=== PATIENT | male | born 1945 | race Caucasian/White ===

== ENCOUNTER 2017-01-14 11:08 | Inpatient (IN) ==
[2017-01-14] MEDS ORDERED: SODIUM CHLORIDE 0.9% 1,000 ML IV STA (11:33)
--- NOTE | 2017-01-14 11:35 | EKG Report ---
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
[2017-01-14 11:57] LABS: Basophils # 0.1 10*3/uL (0.0-0.2); Basophils % 0.8 % (0.0-0.8); Eosinophils # 0.2 10*3/uL (0.0-0.87); Eosinophils % 1.9 % (0.00-10.9); Hematocrit 38.6 VOL% (42.0-52.0); Hemoglobin 13.1 GM/DL (14.0-18.0); Immature Granulocytes % 0.2 %; Immature Granulocytes Absolute 0.02 #; Lymphocytes # 2.1 10*3/uL (1.4-4.0); Lymphocytes % 22.6 % (21.2-54.2); Mean Corpuscular HGB Conc 33.9 GM/DL (32-36); Mean Corpuscular Hemoglobin 30 PG (27-34); Mean Corpuscular Volume 88.5 FL (87-102); Monocytes # 0.6 10*3/uL (0.11-0.8); Monocytes % 6.1 % (1.7-12.7); Neutrophils # 6.2 10*3/uL (1.4-7.4); Neutrophils % 68.4 % (38.7-73.9); Platelet Count 208 T/CUMM (130-400); Red Blood Count 4.36 MC/CUMM (3.8-5.5); Red Cell Distribution Width 12.7 % (9.3-17.3); White Blood Count 9.1 T/CUMM (4-12)
[2017-01-14 12:07] LABS: PT Patient Result 10.9 SECS
--- NOTE | 2017-01-14 12:28 | XRay Report ---
Exam: XR chest 1V portable Indication: Syncope, diaphoresis Comparison study: Prior chest radiograph 03/13/2011 Findings: Cardiac silhouette is enlarged, similar to prior. Mediastinal contours appear within normal limits. Lungs are clear. There is no focal consolidation, pneumothorax or pleural effusion. Postsurgical changes lower cervical spine are partially imaged. Spinal stimulation wiring is also noted. Impression: No acute cardiopulmonary process. Similar mild cardiomegaly. Otherwise, no significant change. PROCEDURE INTERPRETED AT [facility] DEPARTMENT OF RADIOLOGY Final Report Signed by: Luis Munoz
[2017-01-14 12:30] LABS: Albumin 3.7 G/DL (3.4-5.0); Bilirubin,Total 0.7 MG/DL (0.2-1.0); Calcium 8.8 MG/DL (8.5-10.1); Potassium 3.9 MMOL/L (3.5-5.1); Total Protein 7.4 G/DL (6.4-8.3)
--- NOTE | 2017-01-14 13:20 | Emergency Department Note ---
Mejia Razo Hilary, am scribing for, and in the presence of, Basilio Burrell Jr., MD 11:30. IAshanti Marvin Jr., MD, personally performed the services described in this documentation, ascribed by Emily Ba in my presence, and it is both accurate and complete 319 . Arrival - Arrival Chief Complaint: Syncope Stated Complaint: fells faint,sweating,dizzy ED Nursing Triage Note: c/o having near syncope during anabaptism, states he broke out in a sweat , states last evening he did not have any energy and just weak all over., denies having chest pain , Mode of Arrival: Wheelchair Limitations: No Limitations Source: Patient, RN Notes Reviewed - History of Present Illness HPI Narrative: Pt is a 71 y/o white male presenting to the ED with c/o dizziness and sweating which onset this morning while at anabaptism. Pts reports that this is the second time it has happened this month. He confirms dizziness, sweating, no energy and chronic SOB but denies passing out or chest pain. No other complaints or problems stated in the ED. Onset (ago): hour(s) Consistency: now resolved Severity: mild Allergies/Adverse Reactions: Allergies Allergy/AdvReac Type Severity Reaction Status Date / Time No Known Allergies Allergy Verified 01/14/17 11:14 Home Medications: Home Medications Medication Instructions Recorded Confirmed Type Aspirin [Ecotrin] 81 mg PO QAM 02/10/16 01/14/17 History Losartan Potassium 100 mg PO QAM 02/10/16 01/14/17 History Lovastatin 10 mg PO BEDTIME 02/10/16 01/14/17 History Multivitamin [Multivitamins] 1 each PO QPM 02/10/16 01/14/17 History Verapamil Sr Tab [Calan Sr Tab] 240 mg PO BEDTIME 02/10/16 01/14/17 History ACETAMIN/diphenhydrAMIN 500-25 1 tablet PO BEDTIME PRN 01/14/17 01/14/17 History [Tylenol PM] HYDROcodone/ACETAMIN 7.5-325 1 tablet PO Q6H PRN 01/14/17 01/14/17 History [[place] 7.5-325] Gomer-3/Dha/Epa/Fish Oil [Fish Oil 1 each PO BID 01/14/17 01/14/17 History 1,000 mg Softgel] Pregabalin [Lyrica] 25 mg PO BID 01/14/17 01/14/17 History Review of System - Review of System 12 point system: reviewed and no additional remarkable complaints except as stated - Review of System Constitutional: Present: diaphoresis, other (dizziness) Respiratory: Present: respiratory distress (SOB) Cardiovascular: Present: syncope. Absent: chest pain Medical,Surgical,& Family Hx - Medical History Cardio: History of: Cardiac Dysrhythmia (A FIB DR ROMAN), Hypertension Neurology: History of: Peripheral Neuropathy (Currently Experiencing Numbness Rt Arm/Hand-Seeing MD Ceja) No history of: Seizures HEENT: History of: Eye Problem (CATARACTS) Rheumatology: History of;: Rheumatoid Arthritis Respiratory: History of: COPD Genitourinary: History of: Prostate Problems (BPH) Musculoskeletal: History of: Back/Neck Problems - Surgical History HEENT Surgeries: Surgical HX of: Eye Surgery (COS-02/16/16; 03/15/[address] Eid) Abdominal Surgeries: Surgical HX of: Colonoscopy, EGD Orthopedic Surgeries: Surgical HX of;: Orthopedic Surgery (3 BACK SURGERYS STIMULATOR NECK SURGERY), Total Knee Replacement (LEFT) - Family History Family History: Reports;: Family Cancer (PARENTS) - Social History Smoking Status: Smoker, status unknown Frequency of Alcohol Use: None Type of Drug Use: None Exam Physical Examination: General: Well-developed well-nourished, no apparent distress. Blood pressure during my exam 102/61, heart rate was 50 Head: Normocephalic, atraumatic. Eyes: PERRLA, EOMI. Nose: No obvious acute deformities or discharge. Mouth: No obvious acute injury. Neck: Full range of motion without obvious pain. No midline tender to palpation. Lymphatic: no significant lymphadenopathy noted. Lungs: Clear to auscultation bilaterally, normal and equal air movement bilaterally, no obvious rales or wheezing. Heart: Bradycardia, no obvious mummers. Abdomen: Soft nontender, nondistended, normal active bowel sounds. Skin: No obivous acute lesions noted, warm and dry Musculoskeletal: No gross deformities. Neurological: No focal findings, cranial nerves II through XII grossly normal. Psychiatric: Appropriate mood.. : Deferred Vital Signs: Vital Signs Temperature 97.5 F L 01/14/17 11:26 Pulse Rate 52 L 01/14/17 11:30 Respiratory Rate 12 01/14/17 11:30 Blood Pressure 112/60 01/14/17 11:30 O2 Sat by Pulse Oximetry 98 01/14/17 11:30 Course Course Narrative: Differential diagnosis, adverse drug reaction, traumatic bradycardia, ACS - Reevaluation(s) Reevaluation #1: I discussed this patient with the hospitalist and they accept care at this time. Will admit the patient because of symptomatic bradycardia, atrial fibrillation, renal insufficiency, near-syncope Time: 13:05 Results - Labs CBC & BMP: 01/14/17 11:46 01/14/17 11:46 Lab Results: I have reviewed the patients labs Labs: Laboratory Tests 01/14/17 11:46 WBC 9.1 RBC 4.36 Hgb 13.1 L Hct 38.6 L MCV 88.5 MCH 30 MCHC 33.9 RDW 12.7 Plt Count 208 MPV 11.0 Neut % (Auto) 68.4 Lymph % (Auto) 22.6 [place] % (Auto) 6.1 Eos % (Auto) 1.9 Baso % (Auto) 0.8 Neut # (Auto) 6.2 Lymph # (Auto) 2.1 [place] # (Auto) 0.6 Eos # (Auto) 0.2 Baso # (Auto) 0.1 Immature Gran % 0.2 Nucleated RBC % 0.0 Immature Gran # 0.02 Nucleated RBCs # 0.00 Laboratory Tests 01/14/17 01/14/17 11:46 11:46 Sodium 143 Potassium 3.9 Chloride 106 Carbon Dioxide 29 Anion Gap 11.9 BUN 26 H Creatinine 1.60 H GFR Calculation 51 BUN/Creatinine Ratio 16.00 Glucose 140 H Calculated Osmolality 291.0 Calcium 8.8 Total Bilirubin 0.70 AST 23 ALT 27 Alkaline Phosphatase 81 Troponin I < 0.015 Total Protein 7.4 Albumin 3.7 Globulin 3.7 H Albumin/Globulin Ratio 1.0 L - Diagnostic Findings Procedure: Chest x-ray: report reviewed by me (No acute cardiopulmonary process. Similar mild cardiomegaly. Otherwise, no significant change) Disposition Clinical Impression: Near syncope, Symptomatic bradycardia, Hypotension, Renal insufficiency Case discussed with: patient, patient's family Disposition: Still a Patient Condition: Stable Time of Disposition: 13:06
[2017-01-14 14:25] LABS: Apearance,Urine CLEAR (Clear); Bilirubin,Urine Negative (Negative); Blood, Urine Negative (Negative); Glucose,Urine (UA) Negative (Negative); Hyaline Casts,Urine 2 /LPF (0-3); Ketones,Urine Negative (Negative); Mucus,Urine Occasional /LPF (Occasional); Nitrite,Urine Negative (Negative); Protein,Urine Negative; RBC,Urine 4 /HPF (0-4); Squamous Epithelial Cell,Urine Occasional /HPF (0-10); Urine Color Yellow (Yellow); Urine Specific Gravity 1.012 (1.001-1.035); Urine Urobilinogen < 2.0 EU/DL (0.2-1.0); WBC,Urine <1 /HPF (0-6)
--- NOTE | 2017-01-14 14:27 | Hospitalist History & Physical ---
<Eloy Chang - Last Filed: 01/14/17 14:46> Assessment and Plan - Time spent with patient Time spent with patient: Greater than 30 minutes (1) Near syncope Status: Acute Assessment and plan: 71 year old male who presents with near syncope. History of A fib with RVR, rate controlled. Complete syncope workup. CT of head. Carotid dopplers. Echocardiogram. Current Visit: Yes (2) Acute kidney injury Status: Acute Assessment and plan: Patient denies history of renal insufficiency. Creatinine 1.60. GFR calculation 51. Gentle hydration with IV fluids. Current Visit: Yes (3) Symptomatic bradycardia Status: Acute Current Visit: Yes (4) Atrial fibrillation with controlled ventricular response Status: Acute Assessment and plan: Long history of atrial fibrillation with RVR. Rate controlled with verapamil 240. Currently in sinus bradycardia. Current Visit: Yes History of Present Illness Chief complaint: near syncope History of present illness: Mr. Grossman is a 71 year old white male with a past medical history significant for chronic atrial fibrillation, hypertension, COPD, BPH who presents to the ED today with complaints of near syncope. The patient reports that he was in Sunday School when he began to feel dizzy, became diaphoretic and felt faint. He denies ever losing consciousness, but states that this is the second time he has experienced this within the last month. He denies falling and reports that he began to feel better once he was seated in a cool room. The patient states that he has been diagnosed with atrial fibrillation for nearly 25 years now and was last seen by Dr. Selwyn Roman approximately 7 years ago. He states that he takes verapamil for the rate control and only a baby aspirin for anticoagulation. [facility] is a [facility]. He reports he only sees a specialist " when he needs to". 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 He denies any headache, blurry vision, chest pain, SOB, abdominal pain, or edema. Lab work on admission reveal WBC 9.1, hemoglobin 13.1, hematocrit 38.6, INR 1.0 , sodium 143, potassium 3.9, BUN 26, creatinine 1.6, glucose 140. ED nurse reports positive orthostatic BPs. CXR reveals no acute cardiopulmonary process. EKG reveals sinus bradycardia. Cardiac enzymes are negative. The patient is a full code and will be admitted to the hospital medicine service for further evaluation and treatment. Case has been discussed with Dr. Burrell, ED physician, and Dr. Prince, admitting physician. Home Medications Medication Instructions Recorded Confirmed Type Aspirin [Ecotrin] 81 mg PO QAM 02/10/16 01/14/17 History Losartan Potassium 100 mg PO QAM 02/10/16 01/14/17 History Lovastatin 10 mg PO BEDTIME 02/10/16 01/14/17 History Multivitamin [Multivitamins] 1 each PO QPM 02/10/16 01/14/17 History Verapamil Sr Tab [Calan Sr Tab] 240 mg PO BEDTIME 02/10/16 01/14/17 History ACETAMIN/diphenhydrAMIN 500-25 1 tablet PO BEDTIME PRN 01/14/17 01/14/17 History [Tylenol PM] HYDROcodone/ACETAMIN 7.5-325 1 tablet PO Q6H PRN 01/14/17 01/14/17 History [[place] 7.5-325] Pope-3/Dha/Epa/Fish Oil [Fish Oil 1 each PO BID 01/14/17 01/14/17 History 1,000 mg Softgel] Pregabalin [Lyrica] 25 mg PO BID 01/14/17 01/14/17 History Allergies Allergy/AdvReac Type Severity Reaction Status Date / Time No Known Allergies Allergy Verified 01/14/17 11:14 Medical,Surgical,& Family Hx - Medical History Cardio: History of: Cardiac Dysrhythmia (A FIB DR ROMAN), Hypertension Neurology: History of: Peripheral Neuropathy (Currently Experiencing Numbness Rt Arm/Hand-Seeing MD Ceja) No history of: Seizures HEENT: History of: Eye Problem (CATARACTS) Rheumatology: History of;: Rheumatoid Arthritis Respiratory: History of: COPD Genitourinary: History of: Prostate Problems (BPH) Musculoskeletal: History of: Back/Neck Problems - Surgical History HEENT Surgeries: Surgical HX of: Eye Surgery (COS-02/16/16; 03/15/[address] Eid) Abdominal Surgeries: Surgical HX of: Colonoscopy, EGD Orthopedic Surgeries: Surgical HX of;: Orthopedic Surgery (3 BACK SURGERIES STIMULATOR NECK SURGERY), Total Knee Replacement (LEFT) - Family History Family History: Reports;: Family Cancer (PARENTS) - Social History Smoking Status: Smoker, status unknown Frequency of Alcohol Use: None Type of Drug Use: None Marital Status: Lives With:: Spouse Functional capacity: independent ambulation - Constitutional Constitutional: Present: weakness. Absent: frequent falls, headache(s) - Cardiovascular Cardiovascular: Present: diaphoresis, lightheadedness. Absent: chest pain at rest, edema, orthopnea, palpitations - Respiratory Respiratory: Absent: cough, dyspnea, wheezing, pain on inspiration - Gastrointestinal Gastrointestinal: Absent: abdominal pain, constipation, diarrhea - Genitourinary Genitourinary: Present: difficulty urinating. Absent: dysuria, flank pain, hematuria - Musculoskeletal Musculoskeletal: Present: back pain - Neurological Neurological: Present: dizziness, numbness, paresthesias. Absent: abnormal speech, syncope - Psychiatric Psychiatric: Absent: anxiety, confusion, depression - Endocrine Endocrine: Absent: cold intolerance, fatigue, heat intolerance - Hematologic/Lymphatic Hematologic/Lymphatic: Absent: easy bleeding, easy bruising Exam - Constitutional Vitals: Period Temp Pulse Resp BP Sys/Jackson Pulse Ox Last 24 Hr 97.5 F-97.5 F 51-66 10-21 95-129/47-74 96-98 Exam: General appearance: overweight, no acute distress - Head Head exam: Present: normocephalic, atraumatic - Eye Eye exam: Present: EOMI. Absent: conjunctival injection, nystagmus Pupils: Present: JOHN, normal accommodation - ENT ENT exam: Present: normal exam, normal external ear exam - Neck Neck exam: Present: normal inspection. Absent: lymphadenopathy, tenderness, thyromegaly - Respiratory Respiratory exam: Present: clear to auscultation bilaterally. Absent: rales, rhonchi, wheezes - Cardiovascular Cardiovascular exam: Present: sinus bradycardia. Absent: carotid bruit, gallop , rubs - GI/Abdominal GI/Abdominal exam: Present: normal bowel sounds. Absent: ascites, distended, mass - Extremities Exam Extremities exam: Present: normal inspection, normal capillary refill. Absent: edema - Back Exam Back exam: Absent: CVA tenderness (L), CVA tenderness (R) - Neurological Exam Neurological exam: Present: alert, oriented X3 - Psychiatric Psychiatric exam: Present: normal affect, normal mood - Skin Skin exam: Present: normal color, warm, dry Results - Labs CBC & BMP: 01/14/17 11:46 01/14/17 11:46 Lab Results: I have reviewed the past 24 hour labs - EKG EKG results: interpreted by ERMAndrea, sinus rhythm EKG shows: bradycardia - Diagnostic Findings Procedure: Chest x-ray: image reviewed by me, report reviewed by me <Tommy Prince - Last Filed: 01/14/17 15:42> History of Present Illness History of present illness: Mr. Grossman is a 71 year old male Exam - Constitutional Vitals: Period Temp Pulse Resp BP Sys/Jackson Pulse Ox Last 24 Hr 97.5 F-97.6 F 51-66 10-22 95-156/47-74 96-100 Results - Labs CBC & BMP: 01/14/17 11:46 01/14/17 11:46
[2017-01-14] MEDS ORDERED: ACETAMINOPHEN 325 MG TABLET PO PRN (14:53)
[2017-01-14] MEDS ORDERED: ONDANSETRON 4 MG/2 ML VIAL IV PRN (14:53)
[2017-01-14] MEDS ORDERED: DOCUSATE SODIUM 100 MG CAPSULE PO PRN (14:53)
[2017-01-14] MEDS ORDERED: ZALEPLON 5 MG CAPSULE PO PRN (14:53)
[2017-01-14] MEDS ORDERED: SODIUM CHLORIDE 0.9% 1,000 ML IV SCH (15:00)
--- NOTE | 2017-01-14 15:16 | EKG Report ---
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
[2017-01-14 15:57] LABS: Risk Ratio 3.66; VLDL CHOLESTEROL 32.4 MG/DL
--- NOTE | 2017-01-14 16:20 | CT Report ---
CT head/brain wo con INDICATION: Near syncope The total DLP is 1073 mGy*cm. COMPARISON: None available Technique: Serial axial tomographic images of the brain were obtained without the use of intravenous contrast. Dose reduction: This CT exam was performed using one or more of the following dose reduction techniques: Automated exposure control, automated adjustment of the mA and/or KV according to patient size, or use of iterative reconstruction technique. Findings: Moderate generalized atrophy is noted with mild prominence of the sulci and cortical volume loss. Periventricular white matter hypodensity changes are noted bilaterally which do not demonstrate mass effect and are nonspecific but favored to represent sequela of chronic microvascular ischemia. There is no evidence of vascular territory infarct or acute intracranial hemorrhage. The mccord-white matter differentiation is generally maintained. There is no hydrocephalus. The basilar cisterns are patent. The visualized paranasal sinuses, mastoid air cells and middle ear cavities are predominantly clear. The included orbits and their contents appear within normal limits. The visualized osseous structures and overlying soft tissues of the skull and face demonstrate no acute abnormality. IMPRESSION: No acute intracranial abnormality. Generalized atrophy and sequela of chronic microvascular ischemia. PROCEDURE INTERPRETED AT [facility] DEPARTMENT OF RADIOLOGY Final Report Signed by: Luis Munoz
[2017-01-14 16:26] LABS: Free T4 (Free Thyroxine) 1.11 NG/DL (0.76-1.46); Thyroid Stimulating Hormone 0.648 uIU/ml (0.358-3.74)
--- NOTE | 2017-01-14 16:29 | Ultrasound Report ---
Exam: US carotid duplex BI Date: 01/14/2017 2:59 PM Indication: Near syncope Technique: Duplex scan of the bilateral carotid arteries using B-mode/grayscale imaging and Doppler spectral analysis and color flow. Findings: Right Flow velocities centimeters per second Common carotid artery: 77 Proximal ICA: 79 Distal ICA: 114 External carotid artery: 147 Vertebral artery: 59 with antegrade flow ICA/CCA ratio: 1.5 Measurements in millimeters Distal ICA: 5.9 Left: Flow velocities centimeters per second Common carotid artery: 69 Proximal ICA: 92 Distal ICA: 105 External carotid artery: 100 Vertebral artery: 94 with antegrade flow ICA/CCA ratio: 1.5 Measurements in millimeters Distal ICA: 5.3 No significant atherosclerotic plaque or luminal stenosis is evident within either internal carotid artery. Minimal scattered primary calcified atherosclerotic plaque is noted at the carotid bulb bilaterally causing only mild internal carotid artery stenosis. Moderately increased velocities within the left vertebral artery are suggestive but not definitive for moderate stenosis. Color flow is present in all visualized vessels with Doppler analysis. Impression: No suggestion of significant stenosis within either internal carotid artery by ultrasound criteria. Today studies were performed utilizing indirect NASCET criteria The ultrasound images were stored and captured PROCEDURE INTERPRETED AT [facility] DEPARTMENT OF RADIOLOGY Final Report Signed by: Luis Munoz
[2017-01-14] MEDS ORDERED: SODIUM CHLORIDE 0.45% 1,000 ML IV SCH ×2 (16:30)
[2017-01-14] MEDS: SODIUM CHLORIDE 0.45% 1,000 ML IV SCH (16:33)
[2017-01-14] MEDS: ENOXAPARIN 40 MG/0.4 ML SYRINGE SUBCUT SCH (16:33)
[2017-01-14 16:58] LABS: Protein/Creatinine Ratio,Urine 0.2 RATIO
[2017-01-14] MEDS: MULTIVITAMIN (CENTRUM) TABLET PO SCH (18:24)
[2017-01-14] MEDS ORDERED: LOVASTATIN 20 MG TABLET PO SCH (21:00)
[2017-01-14] MEDS ORDERED: VERAPAMIL SR 240 MG TABLET PO SCH (21:00)
[2017-01-14] MEDS ORDERED: SIMVASTATIN 20 MG TABLET PO SCH (21:00)
[2017-01-14] MEDS: OMEGA 3 ACID ETHYL ESTERS 1 GM CAPSULE PO SCH (21:10)
[2017-01-14] MEDS: PREGABALIN 25 MG CAPSULE PO SCH (21:10)
[2017-01-15 05:10] LABS: Basophils # 0.1 10*3/uL (0.0-0.2); Basophils % 0.5 % (0.0-0.8); Eosinophils # 0.2 10*3/uL (0.0-0.87); Eosinophils % 2.5 % (0.00-10.9); Hematocrit 36.1 VOL% (42.0-52.0); Hemoglobin 12.2 GM/DL (14.0-18.0); Immature Granulocytes % 0.2 %; Immature Granulocytes Absolute 0.02 #; Lymphocytes # 2.4 10*3/uL (1.4-4.0); Lymphocytes % 25.7 % (21.2-54.2); Mean Corpuscular HGB Conc 33.8 GM/DL (32-36); Mean Corpuscular Hemoglobin 30 PG (27-34); Mean Corpuscular Volume 87.6 FL (87-102); Monocytes # 0.7 10*3/uL (0.11-0.8); Monocytes % 7.1 % (1.7-12.7); Platelet Count 186 T/CUMM (130-400); Red Blood Count 4.12 MC/CUMM (3.8-5.5); Red Cell Distribution Width 12.7 % (9.3-17.3); White Blood Count 9.4 T/CUMM (4-12)
[2017-01-15 05:47] LABS: Calcium 8.1 MG/DL (8.5-10.1); Osmolality,Calculated 283.1 MOS/KG (273-304); Potassium 3.7 MMOL/L (3.5-5.1)
[2017-01-15] MEDS: SODIUM CHLORIDE 0.45% 1,000 ML IV SCH (05:50)
[2017-01-15] MEDS ORDERED: LOSARTAN 50 MG TABLET PO SCH (09:00)
[2017-01-15] MEDS ORDERED: FINASTERIDE 5 MG TABLET PO SCH (09:00)
[2017-01-15] MEDS: OMEGA 3 ACID ETHYL ESTERS 1 GM CAPSULE PO SCH ×2 (09:10→21:03)
[2017-01-15] MEDS: PANTOPRAZOLE 40 MG TABLET PO SCH (09:10)
[2017-01-15] MEDS: ASPIRIN EC 81 MG TABLET PO SCH (09:10)
[2017-01-15] MEDS: PREGABALIN 25 MG CAPSULE PO SCH ×2 (10:13→21:03)
[2017-01-15] MEDS: LACTULOSE 20 GM/30 ML UDCUP PO PRN (14:41)
--- NOTE | 2017-01-15 16:07 | Hospitalist Progress Note ---
Assessment and Plan (1) Near syncope Status: Acute Assessment and plan: Thought to be secondary to orthostatic hypotension, ns at 75 ml/hr event monitor when discharged, orthostatics, echo done but reading pending, carotid doppler no sig stenosis, head ct no acute stroke Current Visit: Yes (2) Acute renal failure Status: Acute Assessment and plan: resolved with hydration Current Visit: Yes (3) Atrial fibrillation Status: Chronic Assessment and plan: rate controlled on verapamil will hold awaiting orthostatics Current Visit: Yes Qualifiers: Atrial fibrillation type: paroxysmal Qualified Code(s): I48.0 - Paroxysmal atrial fibrillation (4) Orthostasis Status: Acute Assessment and plan: NS at 75 ml/hr, check orthostatics, hold proscar and verapamil for now Current Visit: Yes Hospitalist: Subjective Interval history: Patient reports dizzy and lightheaded sitting down in tenriism. He has had a prior episode before where he almost passed out. He said he gets clammy and then he feels like a shade is being pulled down. Patient had people carry him out of the tenriism that carried him out to the parking lot prior to transfer him by ambulance to the hospital. Patient denied that it was staff internist office based only tenriism. Patient is getting one half normal saline. I have asked him to check orthostatics and will change him to normal saline and hold blood pressure medicines. Patient may benefit from an event monitor. Exam - Constitutional Vitals: Period Temp Pulse Resp BP Sys/Jackson Pulse Ox Last 24 Hr 97.9 F-98.6 F 65-79 18-20 145-168/82-94 95-98 Exam: Heart Rate-[RRR] Lungs-[CTAB] GI-[+bs soft, NT] Ext-[no edema] Neuro [Motor 5/5], [alert and oriented times 3] psych [normal mood and affect] General [no acute distress] Results - Labs CBC & BMP: 01/15/17 04:29 01/15/17 04:30 Lab Results: I have reviewed the past 24 hour labs - Diagnostic Findings Procedure: CT: report reviewed by me (Generalized atrophy and microcysts vascular disease on head CT), Ultrasound: report reviewed by me (Bilateral carotids performed to no significant stenosis, echo done reading pending.)
[2017-01-15] MEDS ORDERED: SODIUM CHLORIDE 0.9% 1,000 ML IV SCH (16:30)
--- NOTE | 2017-01-15 16:53 | Cardiology Consult Note ---
Kulwinder Razo Vanessa, RN, am scribing for, and in the presence of, Herve May MD 16:52. Assessment and Plan - Time spent with patient Time spent with patient: Greater than 30 minutes (Due to assessment, planning, documentation, and medication review) (1) Near syncope Status: Acute Current Visit: Yes (2) Bradycardia Status: Acute Assessment and plan: No significant bradycardia or AV block per cardiac monitoring. Initially, pulse rate was in the 50s but this is improved since admission, holding a verapamil. Current Visit: Yes (3) Atrial fibrillation Status: Chronic Assessment and plan: Patient has been in a sinus rhythm since admission. He is rate controlled with verapamil, but this has been held since admission due to bradycardia. Bradycardia now improved Current Visit: Yes Qualifiers: Atrial fibrillation type: paroxysmal Qualified Code(s): I48.0 - Paroxysmal atrial fibrillation (4) Acute kidney injury Status: Acute Assessment and plan: Creatinine 1.6 at admission. It is improved today to 0.9 with gentle IV hydration overnight. Current Visit: Yes (5) Orthostasis Status: Acute Current Visit: Yes (6) Dyslipidemia Status: Chronic Assessment and plan: Continue current lipid lowering agent. Current Visit: Yes History of Present Illness - Data of Consult Patient: new to practice Consult date: 01/15/17 Requesting Physician: Tommy Prince - Consult Narrative Reason for consult: Near-syncope History of present illness: PRIMARY SOCIAL SCIENCES LECTURER: DR. ROMAN (7 YEARS AGO) PCP:[facility] CONSULT NOTE: NEAR SYNCOPE, RULE OUT ORTHOSTASIS Mr. Grossman is a 71 year old white male with risk factors significant for age, hypertension, dyslipidemia, and tobacco use. Past medical history includes chronic atrial fibrillation, COPD, peripheral neuropathy, spinal cord injury with spinal stimulator. He was evaluated by Dr. Selwyn Roman approximately 7 years ago, but he routinely follows up with the [facility] for medications and refills. Patient is rate controlled with verapamil and he takes baby aspirin daily. Patient presented to the emergency room on January 14 complaining of near-syncope, and reported he was sitting in Sunday school when he experienced sudden dizziness, diaphoresis without loss of consciousness. Patient reports he is chronically short of breath due to COPD, and he was not experiencing chest pain. Lab work revealed elevated creatinine 1.6, negative cardiac biomarkers. EKG with sinus bradycardia, pulse rate upper 50s without acute ST segment change. Head CT with no acute process. Carotid Doppler ultrasound showed no significant carotid artery stenosis. Blood pressure with positive orthostatic changes. Verapamil has been held. Cardiology has been consulted for further evaluation. Patient seen and examined. He is awake and alert. No acute distress noted. Patient's present at bedside. Patient denies chest pain, shortness of breath, palpitation, presyncope, or other complaint at this time. Reports that yesterday while at [employer], he experienced sudden onset of dizziness and feeling hot. States he felt that he would feel better by going to the car to sit in the air conditioning, but this did not improve his symptoms. Denies associated chest pain, nausea or vomiting. Admits to some transient diaphoresis but relates this to feeling hot. No loss of consciousness. Reports this happened approximately a month and a half ago, and with that episode he was also sitting in a chair upright at [employer]. Reports he has also suffered from increased constipation, and he routinely takes a laxative. No recent abdominal pain, tenderness, change in color of bowels. No recent or current exertional chest pain, worsening of shortness of breath, PND, palpitations, syncope. Admits to chronic fatigue and waking up "tired". Patient's at bedside reports that patient goes to the mall daily for a couple hours to walk, but other than going to the mall "he sleeps all day." Denies snoring or holding of breath at night or history of sleep apnea. Serial troponin levels have been negative. Her work is overall unremarkable. Sinus rhythm with pulse rates in the 70s. Systolic BP 100 4160 mmHg. Orthostatic vital signs noted. Echocardiogram has been ordered, and we will review. Patient with history of paroxysms of atrial fibrillation with near syncope which sound suspicious for tachybradycardia syndrome. I do not have any documentation of this at this point. We will continue close monitoring. CC: Navya Gregory MD - Home Medications and Allergies Home Medications: Home Medications Medication Instructions Recorded Confirmed Type Aspirin [Ecotrin] 81 mg PO QAM 02/10/16 01/14/17 History Multivitamin [Multivitamins] 1 each PO QPM 02/10/16 01/14/17 History Verapamil Sr Tab [Calan Sr Tab] 240 mg PO DAILY 02/10/16 01/14/17 History Finasteride 5 mg PO DAILY 01/14/17 01/14/17 History HYDROcodone/ACETAMIN 7.5-325 1 tablet PO Q8H PRN 01/14/17 01/14/17 History [[place] 7.5-325] Losartan [Cozaar] 100 mg PO DAILY 01/14/17 01/14/17 History [place]-3/Dha/Epa/Fish Oil [Fish Oil 1 each PO BID 01/14/17 01/14/17 History 1,000 mg Softgel] Pregabalin [Lyrica] 25 mg PO BID 01/14/17 01/14/17 History Simvastatin 10 mg PO BEDTIME 01/14/17 01/14/17 History Allergies/Adverse Reactions: Allergies Allergy/AdvReac Type Severity Reaction Status Date / Time No Known Allergies Allergy Verified 01/14/17 11:14 - Constitutional Constitutional: Present: as per HPI - EENT Eyes: Present: as per HPI Nose, mouth and throat: Present: as per HPI - Cardiovascular Cardiovascular: Present: as per HPI - Respiratory Respiratory: Present: as per HPI - Gastrointestinal Gastrointestinal: Present: as per HPI - Genitourinary Genitourinary: Present: as per HPI - Musculoskeletal Musculoskeletal: Present: as per HPI - Neurological Neurological: Present: as per HPI - Psychiatric Psychiatric: Present: as per HPI - Endocrine Endocrine: Present: as per HPI - Hematologic/Lymphatic Hematologic/Lymphatic: Present: as per HPI Medical,Surgical,& Family Hx - Medical History Cardio: History of: Cardiac Dysrhythmia (A FIB DR ROMAN), Hypertension Neurology: History of: Peripheral Neuropathy (Currently Experiencing Numbness Rt Arm/Hand-Seeing MD Ceja) No history of: Seizures HEENT: History of: Eye Problem (CATARACTS) Rheumatology: History of;: Rheumatoid Arthritis Respiratory: History of: COPD Genitourinary: History of: Prostate Problems (BPH) Musculoskeletal: History of: Back/Neck Problems - Surgical History Neurologic Surgeries: Surgical HX of: Neurologic Surgery (spinal stimulator-- CANNOT HAVE MRI's) HEENT Surgeries: Surgical HX of: Eye Surgery (COS-02/16/16; 03/15/[address] Eid) Abdominal Surgeries: Surgical HX of: Colonoscopy, EGD Orthopedic Surgeries: Surgical HX of;: Orthopedic Surgery (3 BACK SURGERIES STIMULATOR NECK SURGERY), Total Knee Replacement (LEFT) - Family History Family History: Reports;: Family Cancer (PARENTS) - Social History Smoking Status: Smoker, status unknown Frequency of Alcohol Use: None Type of Drug Use: None Physical Examination Vital Signs Temp Pulse Resp BP Pulse Ox 97.5 F L 55 L 18 110/74 98 01/14/17 11:11 01/14/17 11:11 01/14/17 11:11 01/14/17 11:11 01/14/17 11:11 General: Present: Appears Well, No Apparent Distress HEENT: Present: PERRL, Normocephaly, Mucus Membranes Moist Neck: Present: Supple Neck, Midline Trachea, No JVD/HJR, No Masses, No Bruit Cardiac: Present: Reg Rate and Rhythm, No Murmur. Absent: Tachycardia, Bradycardia Lungs: Present: Normal Exam, Clear Ascult./Percussion, No Wheeze, Rales, Rhonchi. Absent: Oxygen Neuro: Present: Numbness (Slight numbness right hand related to peripheral neuropathy status post spinal cord injury), Grossly Intact. Absent: Resting Tremor, Essential Tremor Abdomen: Present: Soft, Active Bowel Sounds, No Masses. Absent: Tender, Firm, Distended Skin: Present: Clear. Absent: Rash, Suspicious Lesions, Bruising Musculoskeletal: Present: No Fluid Collection, Normal Range of Motion Extremities: Present: No Clubbing, No Cyanosis, No Edema, Normal Upper Extr. Pulses (3+ bilaterally), Normal Lower Extr. Pulses (2+ bilaterally), Capillary Refill (Normal) Result/EKG - Labs CBC & BMP: 01/15/17 04:29 01/15/17 04:30 Lab Results: I have reviewed the past 24 hour labs Labs: Laboratory Results - last 24 hr 01/14/17 01/14/17 01/14/17 11:46 11:46 11:46 WBC 9.1 RBC 4.36 Hgb 13.1 L Hct 38.6 L MCV 88.5 MCH 30 MCHC 33.9 RDW 12.7 Plt Count 208 MPV 11.0 Neut % (Auto) 68.4 Lymph % (Auto) 22.6 Heard % (Auto) 6.1 Eos % (Auto) 1.9 Baso % (Auto) 0.8 Neut # (Auto) 6.2 Lymph # (Auto) 2.1 Heard # (Auto) 0.6 Eos # (Auto) 0.2 Baso # (Auto) 0.1 Immature Gran % 0.2 Nucleated RBC % 0.0 Immature Gran # 0.02 Nucleated RBCs # 0.00 INR 1.0 PT Patient/Control Mix 10.9 Circ Anticoag PTT 24.0 Sodium 143 Potassium 3.9 Chloride 106 Carbon Dioxide 29 Anion Gap 11.9 BUN 26 H Creatinine 1.60 H GFR Calculation 51 BUN/Creatinine Ratio 16.00 Glucose 140 H Calculated Osmolality 291.0 Calcium 8.8 Magnesium Total Bilirubin 0.70 AST 23 ALT 27 Alkaline Phosphatase 81 Troponin I Total Protein 7.4 Albumin 3.7 Globulin 3.7 H Albumin/Globulin Ratio 1.0 L Triglycerides Cholesterol LDL Cholesterol VLDL Cholesterol HDL Cholesterol Heart Disease Risk Ratio Free T4 TSH 3rd Generation Random Cortisol Urine Color Urine Appearance Urine pH Ur Specific [place] Urine Protein Urine Glucose (UA) Urine Ketones Urine Blood Urine Nitrate Urine Bilirubin Urine Urobilinogen Urine Leukocytes Urine RBC Urine WBC Ur Squamous Epith Cells Hyaline Casts Urine Mucus Ur Culture Indicated? Ur Random Sodium Ur Random Potassium Protein/Creatinin Ratio 01/14/17 01/14/17 01/14/17 11:46 14:17 14:17 WBC RBC Hgb Hct MCV MCH MCHC RDW Plt Count MPV Neut % (Auto) Lymph % (Auto) Heard % (Auto) Eos % (Auto) Baso % (Auto) Neut # (Auto) Lymph # (Auto) Heard # (Auto) Eos # (Auto) Baso # (Auto) Immature Gran % Nucleated RBC % Immature Gran # Nucleated RBCs # INR PT Patient/Control Mix Circ Anticoag PTT Sodium Potassium Chloride Carbon Dioxide Anion Gap BUN Creatinine GFR Calculation BUN/Creatinine Ratio Glucose Calculated Osmolality Calcium Magnesium Total Bilirubin AST ALT Alkaline Phosphatase Troponin I < 0.015 Total Protein Albumin Globulin Albumin/Globulin Ratio Triglycerides Cholesterol LDL Cholesterol VLDL Cholesterol HDL Cholesterol Heart Disease Risk Ratio Free T4 TSH 3rd Generation Random Cortisol Urine Color Yellow Urine Appearance Clear Urine pH 6.0 Ur Specific [place] 1.012 Urine Protein Negative Urine Glucose (UA) Negative Urine Ketones Negative Urine Blood Negative Urine Nitrate Negative Urine Bilirubin Negative Urine Urobilinogen < 2.0 H Urine Leukocytes Negative Urine RBC 4 Urine WBC <1 Ur Squamous Epith Cells Occasional Hyaline Casts 2 Urine Mucus Occasional Ur Culture Indicated? Not indicated Ur Random Sodium 110.0 Ur Random Potassium Protein/Creatinin Ratio 01/14/17 01/14/17 01/14/17 14:17 14:17 15:08 WBC RBC Hgb Hct MCV MCH MCHC RDW Plt Count MPV Neut % (Auto) Lymph % (Auto) Heard % (Auto) Eos % (Auto) Baso % (Auto) Neut # (Auto) Lymph # (Auto) Heard # (Auto) Eos # (Auto) Baso # (Auto) Immature Gran % Nucleated RBC % Immature Gran # Nucleated RBCs # INR PT Patient/Control Mix Circ Anticoag PTT Sodium Potassium Chloride Carbon Dioxide Anion Gap BUN Creatinine GFR Calculation BUN/Creatinine Ratio Glucose Calculated Osmolality Calcium Magnesium Total Bilirubin AST ALT Alkaline Phosphatase Troponin I Total Protein Albumin Globulin Albumin/Globulin Ratio Triglycerides Cholesterol LDL Cholesterol VLDL Cholesterol HDL Cholesterol Heart Disease Risk Ratio Free T4 1.11 TSH 3rd Generation 0.648 Random Cortisol Urine Color Urine Appearance Urine pH Ur Specific [place] Urine Protein Urine Glucose (UA) Urine Ketones Urine Blood Urine Nitrate Urine Bilirubin Urine Urobilinogen Urine Leukocytes Urine RBC Urine WBC Ur Squamous Epith Cells Hyaline Casts Urine Mucus Ur Culture Indicated? Ur Random Sodium Ur Random Potassium 42 Protein/Creatinin Ratio 0.2 01/14/17 01/14/17 01/14/17 15:08 15:22 15:22 WBC RBC Hgb Hct MCV MCH MCHC RDW Plt Count MPV Neut % (Auto) Lymph % (Auto) Heard % (Auto) Eos % (Auto) Baso % (Auto) Neut # (Auto) Lymph # (Auto) Heard # (Auto) Eos # (Auto) Baso # (Auto) Immature Gran % Nucleated RBC % Immature Gran # Nucleated RBCs # INR PT Patient/Control Mix Circ Anticoag PTT Sodium Potassium Chloride Carbon Dioxide Anion Gap BUN Creatinine GFR Calculation BUN/Creatinine Ratio Glucose Calculated Osmolality Calcium Magnesium 2.0 Total Bilirubin AST ALT Alkaline Phosphatase Troponin I Total Protein Albumin Globulin Albumin/Globulin Ratio Triglycerides 162 H Cholesterol 183 LDL Cholesterol 101.0 VLDL Cholesterol 32.4 HDL Cholesterol 50 Heart Disease Risk Ratio 3.66 Free T4 TSH 3rd Generation Random Cortisol 8.4 Urine Color Urine Appearance Urine pH Ur Specific [place] Urine Protein Urine Glucose (UA) Urine Ketones Urine Blood Urine Nitrate Urine Bilirubin Urine Urobilinogen Urine Leukocytes Urine RBC Urine WBC Ur Squamous Epith Cells Hyaline Casts Urine Mucus Ur Culture Indicated? Ur Random Sodium Ur Random Potassium Protein/Creatinin Ratio 01/14/17 01/14/17 01/14/17 15:22 17:54 21:44 WBC RBC Hgb Hct MCV MCH MCHC RDW Plt Count MPV Neut % (Auto) Lymph % (Auto) Heard % (Auto) Eos % (Auto) Baso % (Auto) Neut # (Auto) Lymph # (Auto) Heard # (Auto) Eos # (Auto) Baso # (Auto) Immature Gran % Nucleated RBC % Immature Gran # Nucleated RBCs # INR PT Patient/Control Mix Circ Anticoag PTT Sodium Potassium Chloride Carbon Dioxide Anion Gap BUN Creatinine GFR Calculation BUN/Creatinine Ratio Glucose Calculated Osmolality Calcium Magnesium Total Bilirubin AST ALT Alkaline Phosphatase Troponin I < 0.015 < 0.015 < 0.015 Total Protein Albumin Globulin Albumin/Globulin Ratio Triglycerides Cholesterol LDL Cholesterol VLDL Cholesterol HDL Cholesterol Heart Disease Risk Ratio Free T4 TSH 3rd Generation Random Cortisol Urine Color Urine Appearance Urine pH Ur Specific [place] Urine Protein Urine Glucose (UA) Urine Ketones Urine Blood Urine Nitrate Urine Bilirubin Urine Urobilinogen Urine Leukocytes Urine RBC Urine WBC Ur Squamous Epith Cells Hyaline Casts Urine Mucus Ur Culture Indicated? Ur Random Sodium Ur Random Potassium Protein/Creatinin Ratio 01/15/17 01/15/17 04:29 04:30 WBC 9.4 RBC 4.12 Hgb 12.2 L Hct 36.1 L MCV 87.6 MCH 30 MCHC 33.8 RDW 12.7 Plt Count 186 MPV 11.0 Neut % (Auto) 64.0 Lymph % (Auto) 25.7 Heard % (Auto) 7.1 Eos % (Auto) 2.5 Baso % (Auto) 0.5 Neut # (Auto) 6.0 Lymph # (Auto) 2.4 Heard # (Auto) 0.7 Eos # (Auto) 0.2 Baso # (Auto) 0.1 Immature Gran % 0.2 Nucleated RBC % 0.0 Immature Gran # 0.02 Nucleated RBCs # 0.00 INR PT Patient/Control Mix Circ Anticoag PTT Sodium 142 Potassium 3.7 Chloride 106 Carbon Dioxide 25 Anion Gap 14.7 BUN 19 H Creatinine 0.90 GFR Calculation 102 BUN/Creatinine Ratio 21.00 H Glucose 79 Calculated Osmolality 283.1 Calcium 8.1 L Magnesium Total Bilirubin AST ALT Alkaline Phosphatase Troponin I Total Protein Albumin Globulin Albumin/Globulin Ratio Triglycerides Cholesterol LDL Cholesterol VLDL Cholesterol HDL Cholesterol Heart Disease Risk Ratio Free T4 TSH 3rd Generation Random Cortisol Urine Color Urine Appearance Urine pH Ur Specific [place] Urine Protein Urine Glucose (UA) Urine Ketones Urine Blood Urine Nitrate Urine Bilirubin Urine Urobilinogen Urine Leukocytes Urine RBC Urine WBC Ur Squamous Epith Cells Hyaline Casts Urine Mucus Ur Culture Indicated? Ur Random Sodium Ur Random Potassium Protein/Creatinin Ratio - Diagnostic Findings Procedure: Chest x-ray: image reviewed by me, report reviewed by me - EKG EKG results: interpreted by me, no acute changes EKG shows: sinus rhythm Lalo Razo Wesley, MD, personally performed the services described in this documentation, ascribed by Octavia Miramontes RN in my presence, and it is both accurate and complete [id number] .
[2017-01-15] MEDS: ENOXAPARIN 40 MG/0.4 ML SYRINGE SUBCUT SCH (16:57)
[2017-01-15] MEDS: MULTIVITAMIN (CENTRUM) TABLET PO SCH ×2 (17:54→20:57)
[2017-01-15] MEDS ORDERED: SIMVASTATIN 10 MG TABLET PO SCH (21:00)
[2017-01-16] MEDS ORDERED: FINASTERIDE 5 MG TABLET PO SCH (09:00)
[2017-01-16] MEDS: LACTULOSE 20 GM/30 ML UDCUP PO PRN (09:16)
[2017-01-16] MEDS: PREGABALIN 25 MG CAPSULE PO SCH (09:17)
[2017-01-16] MEDS: ASPIRIN EC 81 MG TABLET PO SCH (09:17)
[2017-01-16] MEDS: OMEGA 3 ACID ETHYL ESTERS 1 GM CAPSULE PO SCH (09:17)
[2017-01-16] MEDS: PANTOPRAZOLE 40 MG TABLET PO SCH (09:17)
[2017-01-16] MEDS ORDERED: BISACODYL 5 MG TABLET PO ONE (09:47)
--- NOTE | 2017-01-16 10:58 | Discharge Summary ---
Hospital Course - Hospital Course Hospital Course: 71-year-old male with a history of chronic atrial fib hypertension and COPD presents emergency room with near syncope. Patient was noted to be dehydrated his hypertensive medicines were held. Patient was thought to have a vasovagal episode. Cardiology was consulted. Head CT showed nothing acute. Carotid ultrasound showed no significant disease. A Holter monitor has been placed by Dr. May. Echocardiogram was done but reading is pending. Patient feels better today. His blood pressure was a little high last night we put him back on all his medications except for the verapamil. He is creatinine has improved from 1.6-0.9. His total cholesterol is 183 with triglycerides of 162. Patient has no evidence of infections. Patient's bradycardia has improved on verapamil but his blood pressure has gone up. Follow-up with Dr. May in 2 weeks. Patient will remain off the verapamil. - Time spent with patient Time with patient DS: Greater than 30 minutes (45 min) Diagnosis - Discharge Diagnosis (1) Near syncope Status: Acute (2) Acute renal failure Status: Acute (3) Atrial fibrillation Status: Chronic (4) Orthostasis Status: Acute Discharge Plan - Discharge Data Disposition: Disch To Home/Self Care Condition at Discharge: Stable Discharge Diet: heart healthy Activity: resume usual activities as tolerated Hygiene: no restrictions Weight Bearing at Discharge: full weight bearing Driving: not until seen by doctor - Discharge Medications New amLODIPine [Norvasc] 5 mg PO BEDTIME #30 tablet Continue Aspirin [Ecotrin] 81 mg PO QAM Multivitamin [Multivitamins] 1 each PO QPM Pregabalin [Lyrica] 25 mg PO BID HYDROcodone/ACETAMIN 7.5-325 [[place] 7.5-325] 1 tablet PO Q8H PRN PRN Reason: Pain Simvastatin 10 mg PO BEDTIME Finasteride 5 mg PO DAILY [place]-3/Dha/Epa/Fish Oil [Fish Oil 1,000 mg Softgel] 1 each PO BID Changed Losartan [Cozaar] 100 mg PO DAILY #30 tablet Discontinued Verapamil Sr Tab [[place] Sr Tab] 240 mg PO DAILY - Follow Up or Referral Follow Up: Archie Luke MD [Physician] - 01/30/17 8:[address] ama [Other] - 1 Week (Nc doctor about blood pressure ) - Forms/Instructions Exam - Constitutional Vitals: Period Temp Pulse Resp BP Sys/Jackson Pulse Ox Last 24 Hr 97.6 F-98.7 F 65-117 16-22 145-187/74-105 96-97 General appearance: normal weight, no acute distress - Respiratory Respiratory exam: Present: clear to auscultation bilaterally, wheezes. Absent: rhonchi - Cardiovascular Cardiovascular exam: Present: regular rate and rhythm. Absent: systolic murmur - GI/Abdominal GI/Abdominal exam: Present: normal bowel sounds, soft. Absent: tenderness - Extremities Exam Extremities exam: Present: normal inspection, normal capillary refill Discharge Results Procedures and tests throughout hospitalization: Pending Orders 01/18/17 06:00 CBC [Comp Blood Count Auto Diff] Routine DS: Provider Date of admission: 01/15/17 16:16 Primary care physician: Sandor Moscoso MD Attending physician on admission: Tommy Prince MD Consults: 01/14/17 16:19 Consult to Physician [CONS] Routine Comment: Consulting Provider: Consult to Specialist Group: Cardiology Person Notified: Tam Date Notified: 01/15/17 Time Notified: 08:49 Discharging clinician: Navya Gregory MD
--- NOTE | 2017-01-16 11:32 | ECHO Report ---
Ermias Grossman Exam Date: 01/15/2017 10:28 Referring Physician: Technologist: Veronica Donaldson RDCS Age: 71 Ht (in): 70 Wt (lb): 195 Gender: M Exam Location: [facility] Echo Indications: Near syncope, Acute kidney injury, Atrial fibrillation, Essential (primary) hypertension, Dizziness and giddiness, Weakness, Symptomatic bradycardia, COPD BP: 140 / 60 HR: 54 Rhythm: Sinus Technical Quality: Fair IMPRESSIONS Normal left ventricular cavity size. Mild left ventricular hypertrophy. Left ventricular ejection fraction is estimated at 55 %. The right ventricle is normal in size and function. The right atrium is normal in size. The left atrium is normal in size. Morphologically normal mitral valve without significant stenosis or prolapse. There is no mitral regurgitation. Morphologically normal aortic valve without significant sclerosis or stenosis. There is no aortic regurgitation. Morphologically normal tricuspid valve. Trace tricuspid valve regurgitation. Morphologically normal pulmonic valve without significant stenosis. There is no pulmonic regurgitation. Normal pericardium without effusion. Normal ascending aorta dimension. MEASUREMENTS (Male / Female) Normal Values 2D ECHO LV Diastolic Diameter PLAX 4.0 cm 4.2 - 5.9 / 3.9 - 5.3 cm LV Systolic Diameter PLAX 2.7 cm LV Fractional Shortening PLAX 32.7 % IVS Diastolic Thickness 1.2 cm 0.6 - 1.0 / 0.6 - 0.9 cm LVPW Diastolic Thickness 1.2 cm 0.6 - 1.0 / 0.6 - 0.9 cm RV Internal Dim ED PLAX 3.0 cm Aortic Root Diameter 3.6 cm LA Systolic Diameter LX 3.6 cm 3.0 - 4.0 / 2.7 - 3.8 cm DOPPLER TR Peak Velocity 243.0 cm/s TR Peak Gradient 23.6 mmHg FINDINGS Left Ventricle Normal left ventricular cavity size. Mild left ventricular hypertrophy. Left ventricular ejection fraction is estimated at 55 %. Right Ventricle The right ventricle is normal in size and function. Right Atrium The right atrium is normal in size. Left Atrium The left atrium is normal in size. Mitral Valve Morphologically normal mitral valve without significant stenosis or prolapse. There is no mitral regurgitation. Aortic Valve Morphologically normal aortic valve without significant sclerosis or stenosis. There is no aortic regurgitation. Tricuspid Valve Morphologically normal tricuspid valve. Trace tricuspid valve regurgitation. Pulmonic Valve Morphologically normal pulmonic valve without significant stenosis. There is no pulmonic regurgitation. Pericardium Normal pericardium without effusion. Aorta Normal ascending aorta dimension. Herve May MD (Electronically Signed) Final Date: 16 January 2017 11:31
[2017-01-16 11:41] VITALS: BP 164/90
--- NOTE | 2017-01-16 15:20 | Cardiology Progress Note ---
Kulwinder Razo Vanessa, RN, am scribing for, and in the presence of, Herve May MD 15:20. Assessment and Plan - Time spent with patient Time spent with patient: Greater than 30 minutes (1) Near syncope Status: Acute Assessment and plan: His complaint is suspicious for tachybradycardia syndrome. Holter monitor has since been placed, and we will review this for any abnormalities once completed. (2) Bradycardia Status: Acute Assessment and plan: No significant bradycardia or AV block per cardiac monitoring. Initially, pulse rate was in the 50s but this is improved since admission, holding a verapamil. (3) Atrial fibrillation Status: Chronic Assessment and plan: Patient has been in a sinus rhythm since admission. He is rate controlled with verapamil, but this has been held since admission due to bradycardia. Bradycardia now improved Qualifiers: Atrial fibrillation type: paroxysmal Qualified Code(s): I48.0 - Paroxysmal atrial fibrillation (4) Acute kidney injury Status: Acute Assessment and plan: Creatinine 1.6 at admission. It is improved today to 0.9 with gentle IV hydration overnight. (5) Orthostasis Status: Acute (6) Dyslipidemia Status: Chronic Assessment and plan: Continue current lipid lowering agent. 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 ROMNA (7 YEARS AGO) PCP:[facility] CONSULT NOTE: NEAR SYNCOPE, RULE OUT ORTHOSTASIS Mr. Grossman is a 71 year old white male with risk factors significant for age, hypertension, dyslipidemia, and tobacco use. Past medical history includes chronic atrial fibrillation, COPD, peripheral neuropathy, spinal cord injury with spinal stimulator. He was evaluated by Dr. Selwyn Roman approximately 7 years ago, but he routinely follows up with the [facility] for medications and refills. Patient is rate controlled with verapamil and he takes baby aspirin daily. Patient presented to the emergency room on January 14 complaining of near-syncope, and reported he was sitting in Sunday school when he experienced sudden dizziness, diaphoresis without loss of consciousness. Patient reports he is chronically short of breath due to COPD, and he was not experiencing chest pain. Lab work revealed elevated creatinine 1.6, negative cardiac biomarkers. EKG with sinus bradycardia, pulse rate upper 50s without acute ST segment change. Head CT with no acute process. Carotid Doppler ultrasound showed no significant carotid artery stenosis. Blood pressure with positive orthostatic changes. Verapamil has been held. Cardiology has been consulted for further evaluation. January: Patient has been monitored overnight as he has a history of paroxysmal atrial fibrillation with now near syncope which sound suspicious for tachybradycardia syndrome. Cardiac monitoring has revealed a sinus rhythm with pulse rates in the 70s and no overt ectopy or dysrhythmia appreciated. Systolic BP has been ranging 150-185 mmHg. Patient had a 24-hour Holter monitor placed yesterday evening, and we will follow up with this when completed. He is awake and alert , his appetite is fair. He denies occurrence of chest pain, shortness of breath , dizziness, or other complaint today. Patient and his present at bedside are inquiring as to whether or not he will be able be discharged home today. Exam (Progress Note) - Constitutional Vitals: Period Temp Pulse Resp BP Sys/Jackson Pulse Ox Last 24 Hr 97.8 F-98.7 F 65-117 16-20 145-187/74-105 96-98 Exam: General: Present: Appears Well, No Apparent Distress HEENT: Present: PERRL, Normocephaly, Mucus Membranes Moist Neck: Present: Supple Neck, Midline Trachea, No JVD/HJR, No Masses, No Bruit Cardiac: Present: Reg Rate and Rhythm, No Murmur. Absent: Tachycardia, Bradycardia Lungs: Present: Normal Exam, Clear Ascult./Percussion, No Wheeze, Rales, Rhonchi. Absent: Oxygen Neuro: Present: Numbness (Slight numbness right hand related to peripheral neuropathy status post spinal cord injury), Grossly Intact. Absent: Resting Tremor, Essential Tremor Abdomen: Present: Soft, Active Bowel Sounds, No Masses. Absent: Tender, Firm, Distended Skin: Present: Clear. Absent: Rash, Suspicious Lesions, Bruising Musculoskeletal: Present: No Fluid Collection, Normal Range of Motion Extremities: Present: No Clubbing, No Cyanosis, No Edema, Normal Upper Extr. Pulses (3+ bilaterally), Normal Lower Extr. Pulses (2+ bilaterally), Capillary Refill (Normal) Result/EKG - Labs CBC & BMP: 01/15/17 04:29 01/15/17 04:30 Lab Results: I have reviewed the past 24 hour labs - EKG EKG results: interpreted by me, no acute changes EKG shows: sinus rhythm Specialty Discharge - Follow Up or Referrals Follow up with: dr ama [Other] - 1 Week ([facility] doctor about blood pressure ) Archie Roman MD [Physician] - 01/30/17 8:30 am I, Herve May MD, personally performed the services described in this documentation, ascribed by Octavia Miramontes RN in my presence, and it is both accurate and complete 520 .
== END 2017-01-16 12:49 | disposition home or self-care (01) | DRG 312 ==
LOC: N.EDINP 11:08 → N.ED 11:08 → SUATTDRO 13:51 → N.EDINP 14:33 → N.5E 14:37
PROVIDERS: ADMIT Internal Medicine; ATTEND Internal Medicine

== ENCOUNTER 2017-01-26 09:55 | Observation (INO) ==
[2017-01-26] MEDS ORDERED: DILTIAZEM 50 MG/10 ML VIAL IV STA (10:09)
[2017-01-26] MEDS ORDERED: DILTIAZEM 50 MG/10 ML VIAL IV ONE (10:12)
[2017-01-26] MEDS ORDERED: DILTIAZEM 100 MG VIAL.ADD IV ONE (10:12)
[2017-01-26] MEDS ORDERED: SODIUM CHLORIDE 0.9% 100 ML IV ONE (10:12)
[2017-01-26] MEDS: DILTIAZEM INJ 100 MG in SODIUM CHLORIDE 0.9% 100 ML IV SCH ×2 (10:38→21:12)
--- NOTE | 2017-01-26 10:49 | XRay Report ---
Portable chest Date: 01/26/2017 Clinical history: Chest pain, dyspnea Comparison: 01/14/2017 Technique: Portable AP sitting chest Findings: The heart is borderline in size with calcification in the aortic knob. Chronic scarring in the lungs with atelectasis at the left lung base. Prior anterior cervical fusion with stable SCS and degenerative changes. Impression: Chronic scarring in the lungs with minimal atelectasis at the left lung base. Prior anterior cervical fusion with SCS. PROCEDURE INTERPRETED AT [facility] DEPARTMENT OF RADIOLOGY Final Report Signed by: Dr. Jammie Ochoa
[2017-01-26 10:53] LABS: Basophils # 0.1 10*3/uL (0.0-0.2); Basophils % 0.7 % (0.0-0.8); Eosinophils # 0.1 10*3/uL (0.0-0.87); Eosinophils % 1.7 % (0.00-10.9); Hematocrit 37.6 VOL% (42.0-52.0); Hemoglobin 13.1 GM/DL (14.0-18.0); Immature Granulocytes % 0.2 %; Immature Granulocytes Absolute 0.02 #; Lymphocytes # 1.5 10*3/uL (1.4-4.0); Mean Corpuscular HGB Conc 34.8 GM/DL (32-36); Mean Corpuscular Hemoglobin 30 PG (27-34); Mean Corpuscular Volume 87.2 FL (87-102); Mean Platelet Volume 10.9 FL (9.6-12.0); Monocytes # 0.6 10*3/uL (0.11-0.8); Monocytes % 7.8 % (1.7-12.7); Neutrophils # 5.7 10*3/uL (1.4-7.4); Neutrophils % 70.6 % (38.7-73.9); Platelet Count 192 T/CUMM (130-400); Red Blood Count 4.31 MC/CUMM (3.8-5.5); Red Cell Distribution Width 12.8 % (9.3-17.3)
[2017-01-26 11:29] LABS: CKMB % 2.8 %; Calcium 8.9 MG/DL (8.5-10.1); Potassium 3.8 MMOL/L (3.5-5.1); Troponin I Only 0.033 NG/ML (0.00-0.045)
--- NOTE | 2017-01-26 12:19 | CT Report ---
Exam: CT chest with contrast, PE study Date: 01/26/2017 Comparison: Chest x-ray 01/26/2017 Reason: Chest pain, shortness of breath, atrial fibrillation with positive d-dimer Technique: Axial images of the chest were obtained after administration of 80 cc of IV Omnipaque 350 intravenous contrast. 2 separate injections were performed. Coronal reformatted images were also acquired. The study was performed per pulmonary embolism protocol. Total DLP: 665.50 Findings: There is no evidence of pulmonary embolism through the segmental pulmonary arteries. The heart is borderline in size with coronary artery calcifications and cardiac fat pads. No evidence of aortic dissection. No chest lymphadenopathy. Small hiatal hernia. Degenerative changes are noted with SCS. Pleural thickening with pleural calcification especially posteriorly and bilaterally. Associated pleural nodularity which appears most pronounced at the left lung base. Minimal atelectasis/groundglass opacities. Impression: No evidence of pulmonary embolism. The heart is borderline in size with coronary artery calcifications, small hiatal hernia, degenerative changes, SCS. Pleural thickening and pleural calcification noted bilaterally which can be seen with asbestosis. There is associated subpleural nodules, atelectasis, and probable scarring. Short-term follow-up CT chest may be helpful for further evaluation of these findings. This CT exam was performed using one or more the following dose reduction techniques: Automated exposure control, adjustment of the MA and/or KV according to patient size, or use of iterative reconstruction technique. PROCEDURE INTERPRETED AT [facility] DEPARTMENT OF RADIOLOGY Final Report Signed by: Dr. Jammie Ochoa
--- NOTE | 2017-01-26 12:27 | Emergency Department Note ---
IAri Brooke, am scribing for, and in the presence of, Benjamin Carrero MD 10:17. Alise Razo Hans, MD, personally performed the services described in this documentation, ascribed by Vira Chapman in my presence, and it is both accurate and complete . Arrival - Arrival Chief Complaint: Chest Pain Stated Complaint: chest pain AFIB/RVR ED Nursing Triage Note: Patient with complaint of sharp chest pain 05/22 this morning at 0900 without pain radiation or nausea. Shortness of breath, diaphoresis, and dizziness experienced with episode. A.FIB with RVR 127-156. Event Family Practitioner in progress per Dr. Roman Mode of Arrival: Stretcher Limitations: No Limitations Source: Patient, RN Notes Reviewed Time Seen by Provider: 01/26/17 10:08 - History of Present Illness HPI Narrative: Patient is a 71 year old male brought into the ED by EMS with c/o chest pain. Patient says the pain started around 0900, this morning, but states it has eased off some now. Patient says he was trying to put a belt on when the pain started. He says he got short of breath with the pain. Patient says he had a similar episode, about two weeks ago, and was given a heart monitor to wear. He has to turn the monitor in on February 20, 2017. Patient has PMHx of Afib, HTN, peripheral neuropathy, RA, cataracts, COPD, BPH, and back/neck problems. Patient says he has had the Afib since he was in high school. He does not drink excessive amounts of caffeine. Patient is not a smoker. 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 Onset (ago): hour(s) (1.5) Allergies/Adverse Reactions: Allergies Allergy/AdvReac Type Severity Reaction Status Date / Time No Known Allergies Allergy Verified 01/14/17 11:14 Home Medications: Home Medications Medication Instructions Recorded Confirmed Type Aspirin [Ecotrin] 81 mg PO QAM 02/10/16 01/14/17 History Multivitamin [Multivitamins] 1 each PO QPM 02/10/16 01/14/17 History Finasteride 5 mg PO DAILY 01/14/17 01/14/17 History HYDROcodone/ACETAMIN 7.5-325 1 tablet PO Q8H PRN 01/14/17 01/14/17 History [[place] 7.5-325] [place]-3/Dha/Epa/Fish Oil [Fish Oil 1 each PO BID 01/14/17 01/14/17 History 1,000 mg Softgel] Pregabalin [Lyrica] 25 mg PO BID 01/14/17 01/14/17 History Simvastatin 10 mg PO BEDTIME 01/14/17 01/14/17 History Losartan [Cozaar] 100 mg PO DAILY #30 tablet 01/16/17 01/14/17 Rx amLODIPine [Norvasc] 5 mg PO BEDTIME #30 tablet 01/16/17 Rx Review of System - Review of System 12 point system: reviewed and no additional remarkable complaints except as stated - Review of System Constitutional: Absent: fever Respiratory: Present: other (shortness of breath). Absent: respiratory distress Cardiovascular: Present: chest pain Skin: Absent: rash Medical,Surgical,& Family Hx - Medical History Cardio: History of: Cardiac Dysrhythmia (A FIB DR ROMAN), Hypertension Neurology: History of: Peripheral Neuropathy (Currently Experiencing Numbness Rt Arm/Hand-Seeing MD Ceja) No history of: Seizures HEENT: History of: Eye Problem (CATARACTS) Rheumatology: History of;: Rheumatoid Arthritis Respiratory: History of: COPD Genitourinary: History of: Prostate Problems (BPH) Musculoskeletal: History of: Back/Neck Problems - Surgical History Neurologic Surgeries: Surgical HX of: Neurologic Surgery (spinal stimulator-- CANNOT HAVE MRI's) HEENT Surgeries: Surgical HX of: Eye Surgery (COS-02/16/16; 03/15/[address] Eid) Abdominal Surgeries: Surgical HX of: Colonoscopy, EGD Orthopedic Surgeries: Surgical HX of;: Orthopedic Surgery (3 BACK SURGERIES STIMULATOR NECK SURGERY), Total Knee Replacement (LEFT) - Family History Family History: Reports;: Family Cancer (PARENTS) - Social History Smoking Status: Never smoker Frequency of Alcohol Use: None Type of Drug Use: None Exam Vital Signs: Vital Signs Temperature 98.2 F 01/26/17 09:57 Pulse Rate 127 H 01/26/17 09:57 Respiratory Rate 18 01/26/17 09:57 Blood Pressure 129/87 01/26/17 09:57 O2 Sat by Pulse Oximetry 95 01/26/17 09:57 - General General appearance: alert, in no apparent distress - Head Head exam: Present: atraumatic, normocephalic - Eye Eye exam: Present: normal appearance, PERRL, EOMI - ENT ENT exam: Present: normal exam - Neck Neck exam: Present: normal inspection - Chest Chest inspection: Present: normal inspection, symmetric chest wall rise - Respiratory Respiratory exam: Present: normal lung sounds bilaterally - Cardiovascular Cardiovascular exam: Present: regular rate, irregular rhythm, normal heart sounds - Abdominal Exam Abdominal exam: Present: soft. Absent: distention, tenderness - Extremities Exam Extremities exam: Present: normal inspection - Back Exam Back exam: Present: normal inspection - Neurological Exam Neurological exam: Present: alert, oriented X3 - Psychiatric Psychiatric exam: Present: normal affect, normal mood - Skin Skin exam: Present: warm, dry, intact, normal color Course Course Narrative: This patient was evaluated with EKG that initially showed A. fib with RVR but after Cardizem infusion cardioversion was obtained and he was in sinus rhythm. Chest x-ray and lab work otherwise demonstrated a little bit of elevated d- dimer with normal creatinine and a CT chest PE protocol showed no pulmonary embolism. The patient's repeat EKG had no ST segment changes but we he was continued on a Cardizem infusion and hospitalist agreed to admit him for management of this. He does have a home monitor on from his director professional services and this can be addressed while he is in the hospital Results - Labs CBC & BMP: 01/26/17 10:47 01/26/17 10:47 Lab Results: I have reviewed the patients labs Labs: Laboratory Tests 01/26/17 01/26/17 10:47 10:47 WBC 8.0 RBC 4.31 Hgb 13.1 L Hct 37.6 L MCV 87.2 MCH 30 MCHC 34.8 RDW 12.8 Plt Count 192 MPV 10.9 Neut % (Auto) 70.6 Lymph % (Auto) 19.0 L [place] % (Auto) 7.8 Eos % (Auto) 1.7 Baso % (Auto) 0.7 Neut # (Auto) 5.7 Lymph # (Auto) 1.5 [place] # (Auto) 0.6 Eos # (Auto) 0.1 Baso # (Auto) 0.1 Immature Gran % 0.2 Nucleated RBC % 0.0 Immature Gran # 0.02 Nucleated RBCs # 0.00 D-Dimer, Quantitative 0.6 Laboratory Tests 01/26/17 01/26/17 10:47 10:47 Sodium 143 Potassium 3.8 Chloride 108 H Carbon Dioxide 26 Anion Gap 12.8 BUN 18 Creatinine 1.00 GFR Calculation 90 BUN/Creatinine Ratio 18.00 Glucose 109 H Calculated Osmolality 287.0 Calcium 8.9 Magnesium 2.0 Total Creatine Kinase 228 CK-MB (CK-2) 6.4 H CK and CKMB Interp 2.8 Troponin I 0.033 B-Natriuretic Peptide 29 - Diagnostic Findings Procedure: Chest x-ray: report reviewed by me (Chronic scarring in the lungs with minimal atelectasis at the left lung base. Prior anterior cervical fusion with SCS.) Disposition Clinical Impression: Chest pain, Atrial fibrillation Case discussed with: patient Disposition: Disch To Home/Self Care Condition: Stable Instructions: Chest Pain (ED) Time of Disposition: 12:27
--- NOTE | 2017-01-26 13:00 | Hospitalist History & Physical ---
Assessment and Plan - Time spent with patient Time spent with patient: Greater than 30 minutes (1) Atrial fibrillation with controlled ventricular response Status: Acute Assessment and plan: Mr. Grossman is a pleasant 71-year-old white male with history of chronic A. fib , hypertension, hyperlipidemia, and BPH admitted by the hospitalist service under observation with A. fib with RVR, chest pain and shortness of breath. Patient is now converted into normal sinus rhythm but he is now bradycardic with a rate in the 50s. Patient has a Holter monitor on from 2 weeks ago on a previous admission. Will get serial EKG and troponins. Will consult cardiology for evaluation and restart his home meds. Dr. Baeza will see and examined patient and he will be sent to telemetry. Current Visit: No (2) Bradycardia Status: Acute Current Visit: No (3) Chest pain Status: Acute Current Visit: Yes History of Present Illness Chief complaint: Chest pain History of present illness: Mr. Grossman is a 71 year old white male with history of A. fib not on anticoagulation, hyperlipidemia, hypertension, COPD, chronic back and neck pain and spinal cord injury affecting his right arm, and BPH presenting to the ED with a several hour history of chest pain, shortness of breath, and sweating. Patient states he was just here several weeks ago with near syncopal episodes. Dr. May had placed a Holter monitor on the patient and this is still intact. Patient was in A. fib with RVR upon evaluation in the ED but he has since converted into sinus rhythm with bradycardia with heart rate in the 50s. He is afebrile vital signs are stable. His troponins have a slight bump at 0.033 and his CK-MB is elevated at 6.4. His chest x-ray showing chronic scarring in the lungs with minimal atelectasis to the left lung base. He is pain-free right now and is not complaining of shortness of breath. He denies headache, blurry vision, dysphasia, abdominal pain, constipation or diarrhea, or lower extremity edema. Patient states he had been doing fine after discharge this last admission 2 weeks ago. After discussion with Dr. Carrero the ED physician and Dr. Baeza the admitting hospitalist, it was agreed patient would be admitted for further evaluation Home Medications Medication Instructions Recorded Confirmed Type Aspirin [Ecotrin] 81 mg PO QAM 02/10/16 01/14/17 History Multivitamin [Multivitamins] 1 each PO QPM 02/10/16 01/14/17 History Finasteride 5 mg PO DAILY 01/14/17 01/14/17 History HYDROcodone/ACETAMIN 7.5-325 1 tablet PO Q8H PRN 01/14/17 01/14/17 History [[place] 7.5-325] [place]-3/Dha/Epa/Fish Oil [Fish Oil 1 each PO BID 01/14/17 01/14/17 History 1,000 mg Softgel] Pregabalin [Lyrica] 25 mg PO BID 01/14/17 01/14/17 History Simvastatin 10 mg PO BEDTIME 01/14/17 01/14/17 History Losartan [Cozaar] 100 mg PO DAILY #30 tablet 01/16/17 01/14/17 Rx amLODIPine [Norvasc] 5 mg PO BEDTIME #30 tablet 01/16/17 Rx Allergies Allergy/AdvReac Type Severity Reaction Status Date / Time No Known Allergies Allergy Verified 01/14/17 11:14 Medical,Surgical,& Family Hx - Medical History Cardio: History of: Cardiac Dysrhythmia (A FIB DR ROMAN), Hypertension Neurology: History of: Peripheral Neuropathy (Currently Experiencing Numbness Rt Arm/Hand-Seeing MD Ceja) No history of: Seizures HEENT: History of: Eye Problem (CATARACTS) Rheumatology: History of;: Rheumatoid Arthritis Respiratory: History of: COPD Genitourinary: History of: Prostate Problems (BPH) Musculoskeletal: History of: Back/Neck Problems - Surgical History Neurologic Surgeries: Surgical HX of: Neurologic Surgery (spinal stimulator-- CANNOT HAVE MRI's) HEENT Surgeries: Surgical HX of: Eye Surgery (COS-02/16/16; 03/15/[address] Eid) Abdominal Surgeries: Surgical HX of: Colonoscopy, EGD Orthopedic Surgeries: Surgical HX of;: Orthopedic Surgery (3 BACK SURGERIES STIMULATOR NECK SURGERY), Total Knee Replacement (LEFT) - Family History Family History: Reports;: Family Cancer (PARENTS) - Social History Smoking Status: Former smoker Frequency of Alcohol Use: None Type of Drug Use: None Marital Status: Lives With:: Spouse Functional capacity: independent ambulation Review of systems: Complete 10 system review of systems was obtained and pertinent positives and negatives per HPI Exam - Constitutional Vitals: Period Temp Pulse Resp BP Sys/Jackson Pulse Ox Last 24 Hr 98.2 F-98.2 F 127-127 16-18 129-129/87-87 95 Exam: Constitutional System: No distress. No tremulousness. Head: Normocephalic, atraumatic. Ears, Nose and Throat System: No evidence of Otitis or Mastoiditis. No epistaxis or discharge Eyes System: Pupils equal, round, and reactive. Extraocular muscles intact. Neck: Supple, without adenopathy, No jugular venous distention. No thyromegaly, neck mass, or prior surgery apparent. Respiratory System: Chest clear to auscultation. Cardiovascular System: Heart with bradycardic rate and rhythm. No murmur. GI System: Abdomen soft, nontender. Normo active bowel sounds present. Musculoskeletal System: limbs with no pedal edema. Full distal pulses. Neurological System: No discernable sensory deficit. No aphasia Psychiatric System: Conversation is rational Results - Labs CBC & BMP: 01/26/17 10:47 01/26/17 10:47 Lab Results: I have reviewed the past 24 hour labs - Impressions Patient's first EKG done at 1002 shows A. fib with RVR with moderate voltage criteria for LVH and nonspecific ST and T-wave abnormality. A second EKG done at 1118 shows sinus rhythm with LVH with a heart rate of 73. - Diagnostic Findings Procedure: Chest x-ray: report reviewed by me (Chronic scarring in the lungs with minimal atelectasis at the left lung base prior anterior cervical fusion), CT - chest: report reviewed by me (No evidence of PE. Pleural thickening and pleural calcification noted bilaterally which can be seen with asbestosis. There is associated subpleural nodules, atelectasis, and probable scarring.)
[2017-01-26] MEDS ORDERED: guaiFENesin/DM ER 600-30 MG TABLET PO PRN (13:09)
[2017-01-26] MEDS ORDERED: PROMETHAZINE 25 MG/1 ML VIAL IM PRN (13:09)
[2017-01-26] MEDS ORDERED: MORPHINE 2 MG/1 ML SYRINGE IV PRN (13:09)
[2017-01-26] MEDS ORDERED: ONDANSETRON 4 MG/2 ML VIAL IV PRN (13:09)
[2017-01-26] MEDS ORDERED: DOCUSATE SODIUM 100 MG CAPSULE PO PRN (13:09)
[2017-01-26] MEDS ORDERED: diphenhydrAMINE CAP 25 MG CAPSULE PO PRN (13:09)
[2017-01-26] MEDS ORDERED: ACETAMINOPHEN 325 MG TABLET PO PRN ×2 (13:09)
[2017-01-26 13:38] LABS: Free T4 (Free Thyroxine) 1.04 NG/DL (0.76-1.46); Risk Ratio 3.5
--- NOTE | 2017-01-26 14:03 | EKG Report ---
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
--- NOTE | 2017-01-26 14:03 | EKG Report ---
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
--- NOTE | 2017-01-26 15:40 | Cardiology Consult Note ---
<Sulma Hernadez E - Last Filed: 01/26/17 15:20> Assessment and Plan - Time spent with patient Time spent with patient: Greater than 30 minutes (1) Hypertension Status: Chronic Assessment and plan: SEE PLAN OF CARE LISTED BELOW Current Visit: Yes (2) Near syncope Status: Acute Assessment and plan: SEE PLAN OF CARE LISTED BELOW Current Visit: No (3) Atrial fibrillation with controlled ventricular response Status: Acute Current Visit: No (4) Dyslipidemia Status: Chronic Current Visit: No (5) Chest pain Status: Resolved Assessment and plan: SEE PLAN OF CARE LISTED BELOW Current Visit: Yes History of Present Illness - Data of Consult Patient: known to practice within the last 3 years Consult date: 01/26/17 Requesting Physician: Cynthia Medina - Consult Narrative Reason for consult: near syncope History of present illness: STATISTICAL TECHNICIAN: DR. ROMAN Mr. Grossman, 71WM, previously followed by Dr. Roman. Risk factors include: Age , hypertension, dyslipidemia and tobacco use. Past medical history: Chronic atrial fibrillation, COPD, spinal cord injury with spinal stimulator. He was evaluated by Dr. Dr. Roman approximately 7 years ago but follows up routinely at the [facility] for medications and refills. For the past 4-6 weeks, patient has experienced near syncope on 3 separate occasions. The first time occurred approximately 4-6 weeks ago when he began to feel weak, lightheaded, dizzy with near syncope. This took him several hours to recover but he did stay at home with his at that time. The second time occurred January 14, 2017 when he began to feel the same type symptoms and felt as if he should be evaluated. He was kept overnight. Dr. May saw patient and he was discharged home with an event monitor. Tachybradycardia syndrome was suspected however he had no significant bradycardia or AV block per telemetry while hospitalized. He did have heart rates in the upper 50s during that hospital stay. Blood pressure was positive with orthostatic changes. Today, around 0900, patient began to feel lightheaded, dizzy with near syncope. Patient was getting dressed and trying to remove his belt when the symptoms occurred. The lightheadedness and dizziness lasted several minutes. When he sat down he began to experience chest pain laterally across his chest described as sharp discomfort. He then became short of breath and weak. He contacted EMS where it is reported that he had hypotension and his pulse was undetectable. He did not lose consciousness. The chest discomfort lasted approximately 5-10 minutes. He was brought to the emergency department and found to be in atrial fibrillation with rapid ventricular response. I have obtained records from [facility] where he is having paroxysms of fast rates. He was started on IV Cardizem and he is being transferred to our telemetry unit where he is being seen in consultation. First set of cardiac biomarkers is negative. EKG does not reveal a STEMI OR NSTEMI. D-dimer was only minimally elevated but he did undergo CT of chest which revealed no PE (see report). Echocardiogram January 14, 2017 reveals the following: EF 55%, no significant valvular abnormality. At this time, patient is being maintained on IV Cardizem. His rate is controlled and he is feeling much better. Patient is usually fairly active and can perform his activities without chest pain, heaviness, tightness or shortness of breath. Will continue to monitor his telemetry, cycle his cardiac biomarkers. I will further discuss with Dr. Roman and await additional recommendations. May be a candidate for formal anticoagulation ASSESSMENT/PLAN: 1. NEAR SYNCOPE -continue to monitor his telemetry. He is currently on IV Cardizem and his rate is now been controlled. He may be entering the tachybradycardia syndrome. So far, no bradycardic rates have been noted during this hospital stay. 2. ATRIAL FIB WITH RVR - continue with IV Cardizem 3. HYPERTENSION - usually well controlled. Will adjust medications accordingly during the hospital stay 4. DYSLIPIDEMIA - continue lipid-lowering agent. No need to repeat fasting lipid profile as he is recently during her last hospital stay. 5. CHEST PAIN - continue to cycle cardiac biomarkers. Suspect his atrial fibrillation with rapid ventricular response may be the etiology to the chest discomfort. PTE was ruled out by CT of chest. We will continue to follow and make additional recommendations CC: Alexei Baeza Jr., MD - Home Medications and Allergies Home Medications: Home Medications Medication Instructions Recorded Confirmed Type Aspirin [Ecotrin] 81 mg PO QAM 02/10/16 01/26/17 History Multivitamin [Multivitamins] 1 each PO QPM 02/10/16 01/26/17 History Finasteride 5 mg PO DAILY 01/14/17 01/26/17 History HYDROcodone/ACETAMIN 7.5-325 1 tablet PO Q8H PRN 01/14/17 01/26/17 History [[place] 7.5-325] [place]-3/Dha/Epa/Fish Oil [Fish Oil 1 each PO BID 01/14/17 01/26/17 History 1,000 mg Softgel] Pregabalin [Lyrica] 25 mg PO BID 01/14/17 01/26/17 History Simvastatin 10 mg PO BEDTIME 01/14/17 01/26/17 History Losartan [Cozaar] 100 mg PO DAILY #30 tablet 01/16/17 01/26/17 Rx amLODIPine [Norvasc] 5 mg PO BEDTIME #30 tablet 01/16/17 01/26/17 Rx Allergies/Adverse Reactions: Allergies Allergy/AdvReac Type Severity Reaction Status Date / Time No Known Allergies Allergy Verified 01/14/17 11:14 Review of systems: REVIEW OF SYSTEMS: - Constitutional Constitutional: Present: Fatigue, near syncope. Absent: anorexia, night sweats - EENT Eyes: Absent: blurry vision, loss of vision, diplopia Ears: Absent: decreased hearing, ear pain, ear discharge - Cardiovascular Cardiovascular: Present: chest pain at rest this morning, shortness of breath with the chest pain. Denies edema. Absent: chest pain with deep breath, claudication - Respiratory Respiratory: Denies cough. Absent: wheezing, hemoptysis, change in phlegm color - Gastrointestinal Gastrointestinal: Present: constipation. Absent: abdominal pain, hematemesis , hematochezia, melena, change in bowel habits, nausea - Genitourinary Genitourinary: Absent: difficulty urinating, dysuria, urinary hesitancy, flank pain - Musculoskeletal Musculoskeletal: Present: back pain Absent: joint swelling, muscle cramps, muscle weakness - Neurological Neurological: Present: normal gait without frequent falls. Absent: dizziness, hemiparesis - Psychiatric Psychiatric: Absent: anxiety, depression, difficulty concentrating - Endocrine Endocrine: Present: fatigue. Absent: cold intolerance, heat intolerance, polyuria, polyphagia, polydipsia - Hematologic/Lymphatic Hematologic/Lymphatic: Present: easy bruising. Absent: easy bleeding -Integumentary Integumentary: Absent: lesions, rashes, skin breakdown Medical,Surgical,& Family Hx - Medical History Cardio: History of: Cardiac Dysrhythmia (A FIB DR ROMAN), Hypertension No history of: CAD, [place] Neurology: History of: Peripheral Neuropathy (Currently Experiencing Numbness Rt Arm/Hand-Seeing MD Ceja) No history of: Seizures HEENT: History of: Eye Problem (CATARACTS) Rheumatology: History of;: Rheumatoid Arthritis Respiratory: History of: COPD Genitourinary: History of: Prostate Problems (BPH) Musculoskeletal: History of: Back/Neck Problems - Surgical History Neurologic Surgeries: Surgical HX of: Neurologic Surgery (spinal stimulator-- CANNOT HAVE MRI's) HEENT Surgeries: Surgical HX of: Eye Surgery (COS-02/16/16; 03/15/[address] Eid) Abdominal Surgeries: Surgical HX of: Colonoscopy, EGD Orthopedic Surgeries: Surgical HX of;: Orthopedic Surgery (3 BACK SURGERIES STIMULATOR NECK SURGERY), Total Knee Replacement (LEFT) - Family History Family History: Reports;: Family Cancer (PARENTS) - Social History Smoking Status: Never smoker Have you smoked in the last 12 months: No Frequency of Alcohol Use: None Type of Drug Use: None Marital Status: Lives With:: Spouse Functional capacity: independent ambulation Physical Examination Vital Signs Temp Pulse Resp BP Pulse Ox 98.2 F 127 H 16 129/87 95 01/26/17 09:57 01/26/17 09:57 01/26/17 09:57 01/26/17 09:57 01/26/17 09:57 General: [Appears well with no apparent distress.] [Pleasant and cooperative. ] [Appears comfortable.] HEENT: [PERRL, normocephalic, atraumatic. Mucous membranes moist. No jaundice noted. Conjunctiva moist and clear, sclerae anicteric] Neck: No JVD/HJR, no thyromegaly or lymphadenopathy noted. No carotid bruit appreciated Cardiac: [Irregularly irregular rhythm. ] [II/ HSM heard best at 5ICS left. Lungs: [Clear to auscultation without accessory muscle use to assist the respiratory pattern.] Oxygen in use via nasal cannula Abdomen: Soft, bowel sounds normoactive. Nontender and nondistended. No abdominal bruit or thrill noted. No masses noted. Musculoskeletal: No fluid collection. Decreased range of motion is noted. Extremities: No clubbing, cyanosis noted. [ No edema noted.] Upper extremity pulses 2+. Lower extremity pulses 2+. Capillary refill less than 3 seconds. Skin: No unusual lesions or rashes. No skin breakdown appreciated. Neuro: Awake, alert and oriented 3. Moves all extremities well. Right hand chronic changes noted. Result/EKG - Labs CBC & BMP: 01/26/17 10:47 01/26/17 10:47 Lab Results: I have reviewed the past 24 hour labs Labs: Laboratory Results - last 24 hr 01/26/17 01/26/17 01/26/17 10:30 10:30 10:47 WBC 8.0 RBC 4.31 Hgb 13.1 L Hct 37.6 L MCV 87.2 MCH 30 MCHC 34.8 RDW 12.8 Plt Count 192 MPV 10.9 Neut % (Auto) 70.6 Lymph % (Auto) 19.0 L [place] % (Auto) 7.8 Eos % (Auto) 1.7 Baso % (Auto) 0.7 Neut # (Auto) 5.7 Lymph # (Auto) 1.5 [place] # (Auto) 0.6 Eos # (Auto) 0.1 Baso # (Auto) 0.1 Immature Gran % 0.2 Nucleated RBC % 0.0 Immature Gran # 0.02 Nucleated RBCs # 0.00 D-Dimer, Quantitative Sodium Potassium Chloride Carbon Dioxide Anion Gap BUN Creatinine GFR Calculation BUN/Creatinine Ratio Glucose Calculated Osmolality Calcium Magnesium Total Creatine Kinase CK-MB (CK-2) CK and CKMB Interp Troponin I B-Natriuretic Peptide Triglycerides 260 H Cholesterol 175 LDL Cholesterol 94.0 VLDL Cholesterol 52.0 HDL Cholesterol 50 Heart Disease Risk Ratio 3.50 Free T4 1.04 TSH 3rd Generation 0.843 01/26/17 01/26/17 01/26/17 10:47 10:47 10:47 WBC RBC Hgb Hct MCV MCH MCHC RDW Plt Count MPV Neut % (Auto) Lymph % (Auto) [place] % (Auto) Eos % (Auto) Baso % (Auto) Neut # (Auto) Lymph # (Auto) [place] # (Auto) Eos # (Auto) Baso # (Auto) Immature Gran % Nucleated RBC % Immature Gran # Nucleated RBCs # D-Dimer, Quantitative 0.6 Sodium 143 Potassium 3.8 Chloride 108 H Carbon Dioxide 26 Anion Gap 12.8 BUN 18 Creatinine 1.00 GFR Calculation 90 BUN/Creatinine Ratio 18.00 Glucose 109 H Calculated Osmolality 287.0 Calcium 8.9 Magnesium 2.0 Total Creatine Kinase 228 CK-MB (CK-2) 6.4 H CK and CKMB Interp 2.8 Troponin I 0.033 B-Natriuretic Peptide 29 Triglycerides Cholesterol LDL Cholesterol VLDL Cholesterol HDL Cholesterol Heart Disease Risk Ratio Free T4 TSH 3rd Generation - Diagnostic Findings Procedure: Chest x-ray: report reviewed by me - EKG EKG results: interpreted by me EKG shows: atrial fibrillation Specialty Discharge - Follow Up or Referrals <Archie Roman - Last Filed: 01/26/17 17:55> History of Present Illness - Consult Narrative History of present illness: Patient personally interviewed and examined by me and chart reviewed including his old recent chart. Discussed case with Sulma Hernadez NP. Mr. Grossman is a 71 year old male who in the past has the diagnosis of chronic atrial fibrillation but recently has some episodes of palpitations and weakness and near syncope. On last visit he was found to be in sinus rhythm. His echocardiogram was unremarkable. He had been on verapamil and this was stopped. He had a event monitor placed. He has had a bout 3-4 episodes over the last 3-4 weeks. He presented now with a similar episodes in his event monitor reveals SVT probably atrial fibrillation. Here his ECG revealed atrial fibrillation and converted to sinus rhythm at 1.. He presently is in sinus rhythm on diltiazem infusion. It appears that he is now having recurrent progressive issues. His recent hospitalization and at this admission revealed unremarkable carotid Dopplers and CT of the head as well as echocardiogram. We will go ahead and add sotalol to the patient's medical regimen. If his symptoms persist and will adjust his medications as needed and even consider electrophysiology consult. Hopefully remains stable he will be discharged soon. CC: Alexei Baeza Jr., MD Physical Examination Vital Signs Temp Pulse Resp BP Pulse Ox 98.2 F 127 H 16 129/87 95 01/26/17 09:57 01/26/17 09:57 01/26/17 09:57 01/26/17 09:57 01/26/17 09:57 Result/EKG - Labs CBC & BMP: 01/26/17 10:47 01/26/17 10:47 Labs: Laboratory Results - last 24 hr 01/26/17 01/26/17 01/26/17 10:30 10:30 10:47 WBC 8.0 RBC 4.31 Hgb 13.1 L Hct 37.6 L MCV 87.2 MCH 30 MCHC 34.8 RDW 12.8 Plt Count 192 MPV 10.9 Neut % (Auto) 70.6 Lymph % (Auto) 19.0 L [place] % (Auto) 7.8 Eos % (Auto) 1.7 Baso % (Auto) 0.7 Neut # (Auto) 5.7 Lymph # (Auto) 1.5 [place] # (Auto) 0.6 Eos # (Auto) 0.1 Baso # (Auto) 0.1 Immature Gran % 0.2 Nucleated RBC % 0.0 Immature Gran # 0.02 Nucleated RBCs # 0.00 D-Dimer, Quantitative Sodium Potassium Chloride Carbon Dioxide Anion Gap BUN Creatinine GFR Calculation BUN/Creatinine Ratio Glucose Calculated Osmolality Calcium Magnesium Total Creatine Kinase CK-MB (CK-2) CK and CKMB Interp Troponin I B-Natriuretic Peptide Triglycerides 260 H Cholesterol 175 LDL Cholesterol 94.0 VLDL Cholesterol 52.0 HDL Cholesterol 50 Heart Disease Risk Ratio 3.50 Free T4 1.04 TSH 3rd Generation 0.843 01/26/17 01/26/17 01/26/17 10:47 10:47 10:47 WBC RBC Hgb Hct MCV MCH MCHC RDW Plt Count MPV Neut % (Auto) Lymph % (Auto) [place] % (Auto) Eos % (Auto) Baso % (Auto) Neut # (Auto) Lymph # (Auto) [place] # (Auto) Eos # (Auto) Baso # (Auto) Immature Gran % Nucleated RBC % Immature Gran # Nucleated RBCs # D-Dimer, Quantitative 0.6 Sodium 143 Potassium 3.8 Chloride 108 H Carbon Dioxide 26 Anion Gap 12.8 BUN 18 Creatinine 1.00 GFR Calculation 90 BUN/Creatinine Ratio 18.00 Glucose 109 H Calculated Osmolality 287.0 Calcium 8.9 Magnesium 2.0 Total Creatine Kinase 228 CK-MB (CK-2) 6.4 H CK and CKMB Interp 2.8 Troponin I 0.033 B-Natriuretic Peptide 29 Triglycerides Cholesterol LDL Cholesterol VLDL Cholesterol HDL Cholesterol Heart Disease Risk Ratio Free T4 TSH 3rd Generation 01/26/17 15:55 WBC RBC Hgb Hct MCV MCH MCHC RDW Plt Count MPV Neut % (Auto) Lymph % (Auto) [place] % (Auto) Eos % (Auto) Baso % (Auto) Neut # (Auto) Lymph # (Auto) [place] # (Auto) Eos # (Auto) Baso # (Auto) Immature Gran % Nucleated RBC % Immature Gran # Nucleated RBCs # D-Dimer, Quantitative Sodium Potassium Chloride Carbon Dioxide Anion Gap BUN Creatinine GFR Calculation BUN/Creatinine Ratio Glucose Calculated Osmolality Calcium Magnesium Total Creatine Kinase 206 CK-MB (CK-2) 8.2 H CK and CKMB Interp 4.0 Troponin I 0.405 H D B-Natriuretic Peptide Triglycerides Cholesterol LDL Cholesterol VLDL Cholesterol HDL Cholesterol Heart Disease Risk Ratio Free T4 TSH 3rd Generation
[2017-01-26] MEDS: PANTOPRAZOLE 40 MG TABLET PO SCH (15:55)
[2017-01-26] MEDS: SODIUM CHLORIDE 0.9% 1,000 ML IV SCH ×2 (15:55→23:59)
[2017-01-26] MEDS: ENOXAPARIN 40 MG/0.4 ML SYRINGE SUBCUT SCH (15:55)
[2017-01-26 16:41] LABS: Troponin I Only 0.405 NG/ML (0.00-0.045)
[2017-01-26 19:15] LABS: CKMB % 3.8 %
[2017-01-26 19:17] LABS: Troponin I Only 0.463 NG/ML (0.00-0.045)
[2017-01-26] MEDS: SOTALOL 80 MG TABLET PO SCH (21:12)
[2017-01-27 05:01] LABS: Basophils # 0.1 10*3/uL (0.0-0.2); Basophils % 0.8 % (0.0-0.8); Eosinophils # 0.2 10*3/uL (0.0-0.87); Eosinophils % 2.7 % (0.00-10.9); Hematocrit 33.8 VOL% (42.0-52.0); Hemoglobin 11.3 GM/DL (14.0-18.0); Immature Granulocytes % 0.1 %; Immature Granulocytes Absolute 0.01 #; Lymphocytes # 2.4 10*3/uL (1.4-4.0); Lymphocytes % 32.8 % (21.2-54.2); Mean Corpuscular HGB Conc 33.4 GM/DL (32-36); Mean Corpuscular Hemoglobin 29 PG (27-34); Mean Platelet Volume 11.9 FL (9.6-12.0); Monocytes # 0.6 10*3/uL (0.11-0.8); Monocytes % 8.1 % (1.7-12.7); Neutrophils % 55.5 % (38.7-73.9); Platelet Count 163 T/CUMM (130-400); Red Blood Count 3.84 MC/CUMM (3.8-5.5); Red Cell Distribution Width 12.9 % (9.3-17.3); White Blood Count 7.3 T/CUMM (4-12)
[2017-01-27 05:27] LABS: Calcium 8.2 MG/DL (8.5-10.1); Magnesium 1.8 MG/DL (1.8-2.4); Osmolality,Calculated 290.6 MOS/KG (273-304); Potassium 4.2 MMOL/L (3.5-5.1)
[2017-01-27 05:44] LABS: CKMB % 3.4 %
[2017-01-27 05:45] LABS: Troponin I Only 0.246 NG/ML (0.00-0.045)
[2017-01-27] MEDS: SODIUM CHLORIDE 0.9% 1,000 ML IV SCH ×2 (08:01→14:19)
[2017-01-27] MEDS: PANTOPRAZOLE 40 MG TABLET PO SCH (09:05)
[2017-01-27 09:08] VITALS: BP 185/81
--- NOTE | 2017-01-27 09:19 | EKG Report ---
Stationary ECG Study [facility] Test Date: 01/26/2017 9:25:09 PM Pat Name: DENNYS COREAS Department: Room: 270 Gender: M Jack Prizer: : 1945 Requested by: Anna Russell Order Number: [id number] Reading MD: ALEX VALENCIA Intervals [place] Rate: 61 P: 43 NM: 181 QRS: 37 QRSD: 94 T: 29 QT: 426 QTc: 428 Interpretive Statements SINUS RHYTHM RIGHT VENTRICULAR CONDUCTION DELAY Electronically Signed On 01-28-17 08:20:40 CDT by ALEX VALENCIA [email or web address]
--- NOTE | 2017-01-27 09:20 | EKG Report ---
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
--- NOTE | 2017-01-27 09:57 | Discharge Summary ---
Hospital Course - Hospital Course Hospital Course: Patient was admitted through the emergency room after having episode of SVT at home. Initially had atrial fibrillation with rapid ventricular spots. On some tracings question he has an SVT of possible atrial tachycardia though. He will quickly converted here in the hospital on diltiazem. He has an event monitor which we will continue at home. Since being admitted he has had no further episodes. He is off the IV diltiazem and he is on oral low-dose sotalol. His heart rates remain the 50s and 60s. We may be limited on dosing of sotalol and may have to consider other medication if his heart rates become an issue. His troponins are nondiagnostic. His other lab work is unremarkable. His ECG is with normal sinus rhythm. Diagnosis - Discharge Diagnosis (1) Atrial fibrillation with controlled ventricular response Status: Acute (2) Bradycardia Status: Acute (3) Dyslipidemia Status: Chronic (4) Hypertension Status: Chronic Specialty Discharge - Follow Up or Referrals Discharge Plan - Discharge Medications No Action Aspirin [Ecotrin] 81 mg PO QAM Multivitamin [Multivitamins] 1 each PO QPM Pregabalin [Lyrica] 25 mg PO BID HYDROcodone/ACETAMIN 7.5-325 [[place] 7.5-325] 1 tablet PO Q8H PRN PRN Reason: Pain Simvastatin 10 mg PO BEDTIME Finasteride 5 mg PO DAILY Losartan [Cozaar] 100 mg PO DAILY #30 tablet [place]-3/Dha/Epa/Fish Oil [Fish Oil 1,000 mg Softgel] 1 each PO BID amLODIPine [Norvasc] 5 mg PO BEDTIME #30 tablet - Follow Up or Referral - Forms/Instructions Instructions: Chest Pain (ED) Exam - Constitutional Vitals: Period Temp Pulse Resp BP Sys/[place] Pulse Ox Last 24 Hr 97.9 F-99.2 F 54-127 12-20 96-185/53-87 95-100 Discharge Results Procedures and tests throughout hospitalization: Pending Orders 01/28/17 04:00 BMP w/ Mg [Basic Metabolic Panel w/Mg] IN AM CBC [Comp Blood Count Auto Diff] IN AM 01/29/17 04:00 BMP w/ Mg [Basic Metabolic Panel w/Mg] IN AM CBC [Comp Blood Count Auto Diff] IN AM Labs on day of discharge: Labs from last 24 hours 01/27/17 01/27/1701/27/17 03:42 03:42 03:42 WBC 7.3 RBC 3.84 Hgb 11.3 L Hct 33.8 L MCV 88.0 MCH 29 MCHC 33.4 RDW 12.9 Plt Count 163 MPV 11.9 Neut % (Auto) 55.5 Lymph % (Auto) 32.8 [place] % (Auto) 8.1 Eos % (Auto) 2.7 Baso % (Auto) 0.8 Neut # (Auto) 4.0 Lymph # (Auto) 2.4 [place] # (Auto) 0.6 Eos # (Auto) 0.2 Baso # (Auto) 0.1 Immature Gran % 0.1 Nucleated RBC % 0.0 Immature Gran # 0.01 Nucleated RBCs # 0.00 D-Dimer, Quantitative Sodium 146 H Potassium 4.2 Chloride 110 H Carbon Dioxide 26 Anion Gap 14.2 BUN 17 Creatinine 1.00 GFR Calculation 90 BUN/Creatinine Ratio 17.00 Glucose 82 Calculated Osmolality 290.6 Calcium 8.2 L Magnesium 1.8 Total Creatine Kinase 191 CK-MB (CK-2) 6.5 H CK and CKMB Interp 3.4 Troponin I 0.246 H D B-Natriuretic Peptide Triglycerides Cholesterol LDL Cholesterol VLDL Cholesterol HDL Cholesterol Heart Disease Risk Ratio Free T4 TSH 3rd Generation 01/26/17 01/26/17 01/26/17 18:51 15:55 10:47 WBC RBC Hgb Hct MCV MCH MCHC RDW Plt Count MPV Neut % (Auto) Lymph % (Auto) [place] % (Auto) Eos % (Auto) Baso % (Auto) Neut # (Auto) Lymph # (Auto) [place] # (Auto) Eos # (Auto) Baso # (Auto) Immature Gran % Nucleated RBC % Immature Gran # Nucleated RBCs # D-Dimer, Quantitative Sodium Potassium Chloride Carbon Dioxide Anion Gap BUN Creatinine GFR Calculation BUN/Creatinine Ratio Glucose Calculated Osmolality Calcium Magnesium Total Creatine Kinase 209 206 CK-MB (CK-2) 8.0 H 8.2 H CK and CKMB Interp 3.8 4.0 Troponin I 0.463 H 0.405 H D B-Natriuretic Peptide 29 Triglycerides Cholesterol LDL Cholesterol VLDL Cholesterol HDL Cholesterol Heart Disease Risk Ratio Free T4 TSH 3rd Generation 01/26/17 01/26/17 01/26/17 10:47 10:47 10:47 WBC 8.0 RBC 4.31 Hgb 13.1 L Hct 37.6 L MCV 87.2 MCH 30 MCHC 34.8 RDW 12.8 Plt Count 192 MPV 10.9 Neut % (Auto) 70.6 Lymph % (Auto) 19.0 L [place] % (Auto) 7.8 Eos % (Auto) 1.7 Baso % (Auto) 0.7 Neut # (Auto) 5.7 Lymph # (Auto) 1.5 [place] # (Auto) 0.6 Eos # (Auto) 0.1 Baso # (Auto) 0.1 Immature Gran % 0.2 Nucleated RBC % 0.0 Immature Gran # 0.02 Nucleated RBCs # 0.00 D-Dimer, Quantitative 0.6 Sodium 143 Potassium 3.8 Chloride 108 H Carbon Dioxide 26 Anion Gap 12.8 BUN 18 Creatinine 1.00 GFR Calculation 90 BUN/Creatinine Ratio 18.00 Glucose 109 H Calculated Osmolality 287.0 Calcium 8.9 Magnesium 2.0 Total Creatine Kinase 228 CK-MB (CK-2) 6.4 H CK and CKMB Interp 2.8 Troponin I 0.033 B-Natriuretic Peptide Triglycerides Cholesterol LDL Cholesterol VLDL Cholesterol HDL Cholesterol Heart Disease Risk Ratio Free T4 TSH 3rd Generation 01/26/17 01/26/17 10:30 10:30 WBC RBC Hgb Hct MCV MCH MCHC RDW Plt Count MPV Neut % (Auto) Lymph % (Auto) [place] % (Auto) Eos % (Auto) Baso % (Auto) Neut # (Auto) Lymph # (Auto) [place] # (Auto) Eos # (Auto) Baso # (Auto) Immature Gran % Nucleated RBC % Immature Gran # Nucleated RBCs # D-Dimer, Quantitative Sodium Potassium Chloride Carbon Dioxide Anion Gap BUN Creatinine GFR Calculation BUN/Creatinine Ratio Glucose Calculated Osmolality Calcium Magnesium Total Creatine Kinase CK-MB (CK-2) CK and CKMB Interp Troponin I B-Natriuretic Peptide Triglycerides 260 H Cholesterol 175 LDL Cholesterol 94.0 VLDL Cholesterol 52.0 HDL Cholesterol 50 Heart Disease Risk Ratio 3.50 Free T4 1.04 TSH 3rd Generation 0.843 DS: Provider Date of admission: 01/26/17 13:08 Primary care physician: Sandor Moscoso MD Attending physician on admission: Alexei Baeza Jr., MD Consults: 01/26/17 13:09 Consult to Physician [CONS] Routine Comment: afksenia devlinr, cp, has holter on Consulting Provider: Cardiology - [facility] When should Consulting Provider be notified: Now Discharging clinician: Alpa Andrade Expected date of discharge: 01/27/17
--- NOTE | 2017-01-27 10:03 | Cardiology Progress Note ---
Assessment and Plan (1) Atrial fibrillation with controlled ventricular response Status: Acute Assessment and plan: This is resolved. Continue with sotalol as an outpatient follow-up. Keep his follow-up with me this week. Current Visit: No (2) Bradycardia Status: Acute Assessment and plan: This is stable we will need to watch this on his sotalol. Current Visit: No (3) Dyslipidemia Status: Chronic Assessment and plan: He is on medications. Current Visit: No (4) Hypertension Status: Chronic Assessment and plan: It is up this morning but this is probably because his home medications were not continued. Current Visit: Yes Cardiology - PN: Subj Interval history: Patient is doing well on his sotalol. We will continue that. I have restarted his home medications. His heart rates in the 50s low 60s. I think he just needs his sotalol to be continued and we will keep his follow-up on the of this month. He is tolerating this well. I discussed with the patient his our findings and recommendations. Exam (Progress Note) - Constitutional Vitals: Period Temp Pulse Resp BP Sys/Jackson Pulse Ox Last 24 Hr 97.9 F-99.2 F 54-115 12-20 96-185/53-82 95-100 Exam: General appearance: normal weight, no acute distress HEENT exam: normal inspection, atraumatic Neck exam: normal inspection no JVD. No carotid bruit. Trachea is in midline Respiratory/lungs exam: clear to auscultation bilaterally good air movement. Cardiovascular exam: regular rate and rhythm, no murmur or gallop or rub. No precordial lift. Chest wall exam: nontender GI/Abdominal exam: normal bowel sounds, soft, nontender, no abdominal bruits or pulsatile masses. Extremeties/musculoskeletal: normal inspection without edema or cyanosis. Neurological exam: alert, oriented X3, no focal deficits Psychiatric exam: normal affect, normal mood. Cognitive function is grossly normal. Skin exam: normal color, warm Result/EKG - Labs CBC & BMP: 01/27/17 03:42 01/27/17 03:42 Lab Results: I have reviewed the past 24 hour labs Labs: Laboratory Results - last 24 hr 01/26/17 01/26/17 01/26/17 10:30 10:30 10:47 WBC 8.0 RBC 4.31 Hgb 13.1 L Hct 37.6 L MCV 87.2 MCH 30 MCHC 34.8 RDW 12.8 Plt Count 192 MPV 10.9 Neut % (Auto) 70.6 Lymph % (Auto) 19.0 L [place] % (Auto) 7.8 Eos % (Auto) 1.7 Baso % (Auto) 0.7 Neut # (Auto) 5.7 Lymph # (Auto) 1.5 [place] # (Auto) 0.6 Eos # (Auto) 0.1 Baso # (Auto) 0.1 Immature Gran % 0.2 Nucleated RBC % 0.0 Immature Gran # 0.02 Nucleated RBCs # 0.00 D-Dimer, Quantitative Sodium Potassium Chloride Carbon Dioxide Anion Gap BUN Creatinine GFR Calculation BUN/Creatinine Ratio Glucose Calculated Osmolality Calcium Magnesium Total Creatine Kinase CK-MB (CK-2) CK and CKMB Interp Troponin I B-Natriuretic Peptide Triglycerides 260 H Cholesterol 175 LDL Cholesterol 94.0 VLDL Cholesterol 52.0 HDL Cholesterol 50 Heart Disease Risk Ratio 3.50 Free T4 1.04 TSH 3rd Generation 0.843 01/26/17 01/26/17 01/26/17 10:47 10:47 10:47 WBC RBC Hgb Hct MCV MCH MCHC RDW Plt Count MPV Neut % (Auto) Lymph % (Auto) [place] % (Auto) Eos % (Auto) Baso % (Auto) Neut # (Auto) Lymph # (Auto) [place] # (Auto) Eos # (Auto) Baso # (Auto) Immature Gran % Nucleated RBC % Immature Gran # Nucleated RBCs # D-Dimer, Quantitative 0.6 Sodium 143 Potassium 3.8 Chloride 108 H Carbon Dioxide 26 Anion Gap 12.8 BUN 18 Creatinine 1.00 GFR Calculation 90 BUN/Creatinine Ratio 18.00 Glucose 109 H Calculated Osmolality 287.0 Calcium 8.9 Magnesium 2.0 Total Creatine Kinase 228 CK-MB (CK-2) 6.4 H CK and CKMB Interp 2.8 Troponin I 0.033 B-Natriuretic Peptide 29 Triglycerides Cholesterol LDL Cholesterol VLDL Cholesterol HDL Cholesterol Heart Disease Risk Ratio Free T4 TSH 3rd Generation 01/26/17 01/26/17 01/27/17 15:55 18:51 03:42 WBC RBC Hgb Hct MCV MCH MCHC RDW Plt Count MPV Neut % (Auto) Lymph % (Auto) [place] % (Auto) Eos % (Auto) Baso % (Auto) Neut # (Auto) Lymph # (Auto) [place] # (Auto) Eos # (Auto) Baso # (Auto) Immature Gran % Nucleated RBC % Immature Gran # Nucleated RBCs # D-Dimer, Quantitative Sodium Potassium Chloride Carbon Dioxide Anion Gap BUN Creatinine GFR Calculation BUN/Creatinine Ratio Glucose Calculated Osmolality Calcium Magnesium Total Creatine Kinase 206 209 191 CK-MB (CK-2) 8.2 H 8.0 H 6.5 H CK and CKMB Interp 4.0 3.8 3.4 Troponin I 0.405 H D 0.463 H 0.246 H D B-Natriuretic Peptide Triglycerides Cholesterol LDL Cholesterol VLDL Cholesterol HDL Cholesterol Heart Disease Risk Ratio Free T4 TSH 3rd Generation 01/27/17 01/27/17 03:42 03:42 WBC 7.3 RBC 3.84 Hgb 11.3 L Hct 33.8 L MCV 88.0 MCH 29 MCHC 33.4 RDW 12.9 Plt Count 163 MPV 11.9 Neut % (Auto) 55.5 Lymph % (Auto) 32.8 [place] % (Auto) 8.1 Eos % (Auto) 2.7 Baso % (Auto) 0.8 Neut # (Auto) 4.0 Lymph # (Auto) 2.4 [place] # (Auto) 0.6 Eos # (Auto) 0.2 Baso # (Auto) 0.1 Immature Gran % 0.1 Nucleated RBC % 0.0 Immature Gran # 0.01 Nucleated RBCs # 0.00 D-Dimer, Quantitative Sodium 146 H Potassium 4.2 Chloride 110 H Carbon Dioxide 26 Anion Gap 14.2 BUN 17 Creatinine 1.00 GFR Calculation 90 BUN/Creatinine Ratio 17.00 Glucose 82 Calculated Osmolality 290.6 Calcium 8.2 L Magnesium 1.8 Total Creatine Kinase CK-MB (CK-2) CK and CKMB Interp Troponin I B-Natriuretic Peptide Triglycerides Cholesterol LDL Cholesterol VLDL Cholesterol HDL Cholesterol Heart Disease Risk Ratio Free T4 TSH 3rd Generation - Impressions Impressions: ECG with normal sinus rhythm. Telemetry with normal sinus rhythm. No recurrent SVT. Specialty Discharge - Follow Up or Referrals
--- NOTE | 2017-01-27 10:46 | Discharge Summary ---
<James Mar - Last Filed: 01/27/17 10:27> Hospital Course - Hospital Course Hospital Course: Mr. Grossman is a 71 yr old white male patient with a history of hypertension, atrial fibrillation, bph, renal insufficiency, and dyslipidemia that presented to the ED on 01/26 for complaints of chest pain and shortness of breath. The patient has been recently seen weeks ago after experiencing a near syncopal episode. The patient had been placed on a Holter monitor and was noted to be in A. fib with RVR on evaluation in the ED. Patient was also noted to have an elevation in his troponins and 0.033. The patient was converted to sinus rhythm after a dose of Cardizem. Patient was admitted to the hospitalist service for further evaluation and treatment. The patient was started on IV Cardizem and cardiology was consulted to evaluate the patient. After admission the patient had no further episodes of A. fib with RVR. Cardizem was discontinued and patient was placed on oral low-dose sotalol. Patient's heart rate is currently in the 50s and 60s. Troponins initially [place] (0.405 and 0.463) however last troponin was 0.246. Patient's ECG is normal; patient is in sinus rhythm. Labs are unremarkable. Patient stable without any chest pain or shortness of breath. Patient will be discharged home today. Patient still has an event monitor in place and will follow up with Dr. Luke on January 30. Specialty Discharge - Follow Up or Referrals Discharge Plan - Discharge Data Disposition: Disch To Home/Self Care - Discharge Medications New Sotalol [Betapace] 40 mg PO BID #60 tablet Continue Aspirin [Ecotrin] 81 mg PO QAM Multivitamin [Multivitamins] 1 each PO QPM Pregabalin [Lyrica] 25 mg PO BID HYDROcodone/ACETAMIN 7.5-325 [[place] 7.5-325] 1 tablet PO Q8H PRN PRN Reason: Pain Simvastatin 10 mg PO BEDTIME Finasteride 5 mg PO DAILY Losartan [Cozaar] 100 mg PO DAILY #30 tablet [place]-3/Dha/Epa/Fish Oil [Fish Oil 1,000 mg Softgel] 1 each PO BID amLODIPine [Norvasc] 5 mg PO BEDTIME #30 tablet - Follow Up or Referral Follow Up: Archie Luke MD [Physician] - - Forms/Instructions Instructions: Chest Pain (ED) Exam - Constitutional Vitals: Period Temp Pulse Resp BP Sys/Jackson Pulse Ox Last 24 Hr 97.9 F-99.2 F 54-63 16-20 130-185/53-82 95-99 Discharge Results Procedures and tests throughout hospitalization: Pending Orders 01/28/17 04:00 BMP w/ Mg [Basic Metabolic Panel w/Mg] IN AM CBC [Comp Blood Count Auto Diff] IN AM 01/29/17 04:00 BMP w/ Mg [Basic Metabolic Panel w/Mg] IN AM CBC [Comp Blood Count Auto Diff] IN AM Labs on day of discharge: Labs from last 24 hours 01/27/17 01/27/17 01/27/17 03:42 03:42 03:42 WBC 7.3 RBC 3.84 Hgb 11.3 L Hct 33.8 L MCV 88.0 MCH 29 MCHC 33.4 RDW 12.9 Plt Count 163 MPV 11.9 Neut % (Auto) 55.5 Lymph % (Auto) 32.8 [place] % (Auto) 8.1 Eos % (Auto) 2.7 Baso % (Auto) 0.8 Neut # (Auto) 4.0 Lymph # (Auto) 2.4 [place] # (Auto) 0.6 Eos # (Auto) 0.2 Baso # (Auto) 0.1 Immature Gran % 0.1 Nucleated RBC % 0.0 Immature Gran # 0.01 Nucleated RBCs # 0.00 Sodium 146 H Potassium 4.2 Chloride 110 H Carbon Dioxide 26 Anion Gap 14.2 BUN 17 Creatinine 1.00 GFR Calculation 90 BUN/Creatinine Ratio 17.00 Glucose 82 Calculated Osmolality 290.6 Calcium 8.2 L Magnesium 1.8 Total Creatine Kinase 191 CK-MB (CK-2) 6.5 H CK and CKMB Interp 3.4 Troponin I 0.246 H D Triglycerides Cholesterol LDL Cholesterol VLDL Cholesterol HDL Cholesterol Heart Disease Risk Ratio Free T4 TSH 3rd Generation 01/26/17 01/26/17 01/26/17 18:51 15:55 10:30 WBC RBC Hgb Hct MCV MCH MCHC RDW Plt Count MPV Neut % (Auto) Lymph % (Auto) [place] % (Auto) Eos % (Auto) Baso % (Auto) Neut # (Auto) Lymph # (Auto) [place] # (Auto) Eos # (Auto) Baso # (Auto) Immature Gran % Nucleated RBC % Immature Gran # Nucleated RBCs # Sodium Potassium Chloride Carbon Dioxide Anion Gap BUN Creatinine GFR Calculation BUN/Creatinine Ratio Glucose Calculated Osmolality Calcium Magnesium Total Creatine Kinase 209 206 CK-MB (CK-2) 8.0 H 8.2 H CK and CKMB Interp 3.8 4.0 Troponin I 0.463 H 0.405 H D Triglycerides Cholesterol LDL Cholesterol VLDL Cholesterol HDL Cholesterol Heart Disease Risk Ratio Free T4 TSH 3rd Generation 0.843 01/26/17 10:30 WBC RBC Hgb Hct MCV MCH MCHC RDW Plt Count MPV Neut % (Auto) Lymph % (Auto) [place] % (Auto) Eos % (Auto) Baso % (Auto) Neut # (Auto) Lymph # (Auto) [place] # (Auto) Eos # (Auto) Baso # (Auto) Immature Gran % Nucleated RBC % Immature Gran # Nucleated RBCs # Sodium Potassium Chloride Carbon Dioxide Anion Gap BUN Creatinine GFR Calculation BUN/Creatinine Ratio Glucose Calculated Osmolality Calcium Magnesium Total Creatine Kinase CK-MB (CK-2) CK and CKMB Interp Troponin I Triglycerides 260 H Cholesterol 175 LDL Cholesterol 94.0 VLDL Cholesterol 52.0 HDL Cholesterol 50 Heart Disease Risk Ratio 3.50 Free T4 1.04 TSH 3rd Generation DS: Provider Date of admission: 01/26/17 13:08 Primary care physician: Sandor Moscoso MD Attending physician on admission: Alexei Baeza Jr., MD Consults: 01/26/17 13:09 Consult to Physician [CONS] Routine Comment: afib w rvr, cp, has holter on Consulting Provider: Cardiology - [facility] When should Consulting Provider be notified: Now Discharging clinician: James Mar NP <John Emerson - Last Filed: 01/27/17 13:06> Hospital Course - Time spent with patient Time with patient DS: Greater than 30 minutes (Total discharge time for this patient, including [id number] time, clinical documentation, medication reconciliation, and discharge planning was 38 minutes.) Diagnosis - Discharge Diagnosis (1) Atrial fibrillation Status: Chronic (2) Chest pain Status: Resolved (3) Hypertension Status: Chronic Discharge Plan - Discharge Data Condition at Discharge: Stable Discharge Diet: advance to your usual diet Activity: resume usual activities as tolerated Hygiene: no restrictions Weight Bearing at Discharge: full weight bearing Driving: no restrictions Contact your physician if you experience:: fever over 101, Shortness of breath DS: Provider Expected date of discharge: 01/27/17
[2017-01-27] MEDS: SOTALOL 80 MG TABLET PO SCH ×2 (10:47→12:06)
[2017-01-27] MEDS: DILTIAZEM INJ 100 MG in SODIUM CHLORIDE 0.9% 100 ML IV SCH (10:48)
[2017-01-27] MEDS: ENOXAPARIN 40 MG/0.4 ML SYRINGE SUBCUT SCH (14:18)
[2017-01-27] MEDS ORDERED: MULTIVITAMIN (CENTRUM) TABLET PO SCH (19:00)
[2017-01-27] MEDS ORDERED: amLODIPine 5 MG TABLET PO SCH (21:00)
[2017-01-27] MEDS ORDERED: OMEGA 3 ACID ETHYL ESTERS 1 GM CAPSULE PO SCH (21:00)
[2017-01-27] MEDS ORDERED: SIMVASTATIN 20 MG TABLET PO SCH (21:00)
[2017-01-27] MEDS ORDERED: PREGABALIN 25 MG CAPSULE PO SCH (21:00)
[2017-01-28] MEDS ORDERED: ASPIRIN EC 81 MG TABLET PO SCH (09:00)
[2017-01-28] MEDS ORDERED: LOSARTAN 50 MG TABLET PO SCH (09:00)
[2017-01-28] MEDS ORDERED: FINASTERIDE 5 MG TABLET PO SCH (09:00)
== END 2017-01-27 14:18 | disposition home or self-care (01) ==
LOC: EDUNIT# → N.EDINP 09:55 → N.ED 09:55 → SUATTDRO 13:08 → N.TELES 13:58
PROVIDERS: ADMIT Internal Medicine Nephrology; ATTEND Family Medicine